=== PATIENT | female | born 1950 | race Caucasian/White ===

== ENCOUNTER 2024-06-28 23:45 | Inpatient (IN) | payer OTHER, SELFPAY ==
[2024-06-28] VITALS (12 sets, daily range): BP systolic 110–166; BP diastolic 81–117; PULSE 115–124; BMI 23.6
--- NOTE | 2024-06-28 14:40 | ED.GENMED ---
History of Present Illness
<NEAL Rios - Last Filed: 06/29/24 07:30>
General
Chief Complaint: Dizziness
Source: patient
Exam Limitations: none
Time Seen by Provider: 06/28/24 14:40
Nursing documentation reviewed up to this point in time: agreed with
History of Present Illness
History of Present Illness:
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 She reports she started 2 weeks ago with room spinning sensation every time she would lay down normal to the right. She did however develop a headache 2 days
ago and this a.m. started with a very severe headache and nausea. She complains of pain to the right side of her head right lateral to mid neck and still feels some vertigo when she looks to the right when she is laying down.
She denies any recent trauma she fell about a month ago. She denies any chiropractic manipulation. She is not on blood thinners. No difficulty with speech or weakness in extremities.
Past History
<NEAL Rios - Last Filed: 06/29/24 07:30>
Past History
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
Social History
Tobacco: Non-smoker
Alcohol: Daily (2 glasses of wine a day)
Drug: None
Personal: Single
Living: alone
Family History
Family History: Other
Phy Exam
<NEAL Rios - Last Filed: 06/29/24 07:30>
General Physical Exam
General Presentation: no apparent distress
General age: appears stated age
General Skin: warm and dry
General Habitus: normal
General Mental: alert
General Hydration: appears well hydrated
ENT Exam
ENT Exam: neck supple
Eye Exam
Eye Exam: PERRL, EOMI and other (no nystagmus b/l )
Eye Exam General: PERRL: bilateral and EOM intact: bilateral
Pupil Exam: Bilateral: round and reactive
Pulmonary Exam
Pulmonary Exam: lungs clear and no respiratory distress
Neurological Exam
Neurological Exam: alert, oriented x3, no motor deficits and no sensory deficits
Musculoskeletal Exam
Musculoskeletal Exam: full ROM
Skin Exam
Skin Exam: normal color and warm/dry
Psychiatric Exam
Psychiatric Exam: normal mood/affect
Course
<NEAL Rios - Last Filed: 06/29/24 07:30>
Orders/Labs/Results
Orders:
Orders
06/28/24 13:10
ECG [Electrocardiogram (*1)] Urgent
Reason for Study: Vertigo / Dizzy
06/28/24 13:11
CT Head W/o Iv Contrast Urgent
Comment:
Reason For Exam: headache
EKG- Treatment ONCE
06/28/24 14:52
IV Insert/Care/Rem.- Treatment PRN
0.9% Sodium Chloride 1000 ml [Nss] 1,000 ml IV BOLUS
Metoclopramide [Reglan] 10 mg IV NOW STA
06/28/24 14:53
CT Head & Neck Angio W/wo IV Urgent
Comment:
Reason For Exam: neck pain/vertigo/headache
Diphenhydramine [Benadryl] 25 mg IV NOW STA
06/28/24 15:20
C-Reactive Protein Urgent
Comment: ADD ON
Complete Blood Count/With Diff Urgent
Comprehensive Metabolic Panel Urgent
Erythrocyte Sed Rate Urgent
06/28/24 16:39
Diphenhydramine [Benadryl] 50 mg .ROUTE .STK-MED ONE
06/28/24 16:50
Diphenhydramine [Benadryl] 25 mg IV NOW STA
06/28/24 18:28
Orthostatic VS- Treatment ONCE
06/28/24 18:29
Baclofen [Lioresal] 10 mg PO ONCE ONE
06/28/24 18:35
Add On- LAB Urgent
Tests Added?: CRP, sed rate
06/28/24 22:20
Meningitis Panel, CSF by PCR Stat
[facility] Source: [facility]
Specimen Description:
06/28/24 22:23
CSF Cell Count Stat
Date Specimen was Collected: 06/28/24
Time Specimen was Collected: 22:16
CSF Tube Number: 4
CSF Cell Count X Stat
Date Specimen was Collected: 06/28/24
Time Specimen was Collected: 22:16
CSF Tube Number: 4
Lyme PCR, DNA [S] Stat
Spinal Fluid Glucose Urgent
Date Specimen was Collected: 06/28/24
Time Specimen was Collected: 22:16
Spinal Fluid Protein Urgent
Date Specimen was Collected: 06/28/24
Time Specimen was Collected: 22:16
06/28/24 22:24
CSF Culture with Gram Stain Stat
[facility] Source: [facility]
Specimen Description:
Date Specimen was Collected: 06/28/24
Time Specimen was Collected: 22:16
06/28/24 23:12
Acetaminophen [Tylenol] 1,000 mg PO NOW STA
06/29/24 06:43
MR Brain Without Contrast Routine
Reason For Exam: occipital headache, vertigo
OK for patient to be off Cardiac Monitoring for MRI: No
Recent pill cam endoscopy?: No
Abnormal Lab Results
06/28/24 06/28/24
15:20 22:23
Hgb 16.6 H g/dL
(12.0-16.0)
Hct 50.5 H %
(37.0-47.0)
MCH 31.3 H pg
(27.0-31.0)
MCHC 32.9 L g/dL
(33.0-37.0)
Absolute Lymphs (auto) 0.7 L 10^3/uL
(1.2-3.4)
Neutrophils % 79.1 H %
(42.2-75.2)
Lymphocytes % 12.5 L %
(20.5-51.1)
Creatinine 0.5 L mg/dL
(0.6-1.0)
CSF Glucose 77 H mg/dl
(40-70)
06/28/24 15:20
06/28/24 15:20
Vital Signs
Initial and Last Documented VS:
Initial Vital Signs
Temp Pulse Resp BP Pulse Ox
98.3 F 93 20 166/107 96
06/28/24 13:08 06/28/24 13:08 06/28/24 13:08 06/28/24 13:08 06/28/24 13:08
Last Documented Vital Signs
Temp Pulse Resp BP Pulse Ox
98.3 F 70 18 148/96 94
06/28/24 13:08 06/29/24 06:30 06/29/24 05:30 06/29/24 04:34 06/29/24 04:45
<Barbara Collier, DO - Last Filed: 06/28/24 22:37>
Orders/Labs/Results
Orders:
Orders
06/28/24 13:10
ECG [Electrocardiogram (*1)] Urgent
Reason for Study: Vertigo / Dizzy
06/28/24 13:11
CT Head W/o Iv Contrast Urgent
Comment:
Reason For Exam: headache
EKG- Treatment ONCE
06/28/24 14:52
IV Insert/Care/Rem.- Treatment PRN
0.9% Sodium Chloride 1000 ml [Nss] 1,000 ml IV BOLUS
Metoclopramide [Reglan] 10 mg IV NOW STA
06/28/24 14:53
CT Head & Neck Angio W/wo IV Urgent
Comment:
Reason For Exam: neck pain/vertigo/headache
Diphenhydramine [Benadryl] 25 mg IV NOW STA
06/28/24 15:20
C-Reactive Protein Urgent
Comment: ADD ON
Complete Blood Count/With Diff Urgent
Comprehensive Metabolic Panel Urgent
Erythrocyte Sed Rate Urgent
06/28/24 16:39
Diphenhydramine [Benadryl] 50 mg .ROUTE .STK-MED ONE
06/28/24 16:50
Diphenhydramine [Benadryl] 25 mg IV NOW STA
06/28/24 18:28
Orthostatic VS- Treatment ONCE
06/28/24 18:29
Baclofen [Lioresal] 10 mg PO ONCE ONE
06/28/24 18:35
Add On- LAB Urgent
Tests Added?: CRP, sed rate
06/28/24 22:20
Meningitis Panel, CSF by PCR Stat
[facility] Source: [facility]
Specimen Description:
06/28/24 22:23
CSF Cell Count Stat
Date Specimen was Collected: 06/28/24
Time Specimen was Collected: 22:16
CSF Tube Number: 4
CSF Cell Count X Stat
Date Specimen was Collected: 06/28/24
Time Specimen was Collected: 22:16
CSF Tube Number: 4
Lyme PCR, DNA [S] Stat
Spinal Fluid Glucose Urgent
Date Specimen was Collected: 06/28/24
Time Specimen was Collected: 22:16
Spinal Fluid Protein Urgent
Date Specimen was Collected: 06/28/24
Time Specimen was Collected: 22:16
06/28/24 22:24
CSF Culture with Gram Stain Stat
[facility] Source: [facility]
Specimen Description:
Date Specimen was Collected: 06/28/24
Time Specimen was Collected: 22:16
06/28/24 23:12
Acetaminophen [Tylenol] 1,000 mg PO NOW STA
06/29/24 06:43
MR Brain Without Contrast Routine
Reason For Exam: occipital headache, vertigo
OK for patient to be off Cardiac Monitoring for MRI: No
Recent pill cam endoscopy?: No
Abnormal Lab Results
06/28/24 06/28/24
15:20 22:23
Hgb 16.6 H g/dL
(12.0-16.0)
Hct 50.5 H %
(37.0-47.0)
MCH 31.3 H pg
(27.0-31.0)
MCHC 32.9 L g/dL
(33.0-37.0)
Absolute Lymphs (auto) 0.7 L 10^3/uL
(1.2-3.4)
Neutrophils % 79.1 H %
(42.2-75.2)
Lymphocytes % 12.5 L %
(20.5-51.1)
Creatinine 0.5 L mg/dL
(0.6-1.0)
CSF Glucose 77 H mg/dl
(40-70)
06/28/24 15:20
06/28/24 15:20
Vital Signs
Initial and Last Documented VS:
Initial Vital Signs
Temp Pulse Resp BP Pulse Ox
98.3 F 93 20 166/107 96
06/28/24 13:08 06/28/24 13:08 06/28/24 13:08 06/28/24 13:08 06/28/24 13:08
Last Documented Vital Signs
Temp Pulse Resp BP Pulse Ox
98.3 F 70 18 148/96 94
06/28/24 13:08 06/29/24 06:30 06/29/24 05:30 06/29/24 04:34 06/29/24 04:45
Procedures
<Barbara Collier DO - Last Filed: 06/28/24 22:37>
Lumbar Puncture
Indication for procedure:: headache
Procedure completed by: Barbara Collier DO
Consent form signed: Yes
If no, reason: Emergency procedure
Anesthesia/sedation: 1% Lidocaine
Preparation: cleaned with Betadine
Position: sitting
Needle Size: 22 gauge
Needle Type: Lumbar Needle
Number of attempts: 1
Dressing applied to puncture site: bandaid
Complications: none
<NEAL Rios - Last Filed: 06/29/24 07:30>
MDM/Problems Addressed
MDM/Problems Addressed:
As documented patient is a 74-year-old with ALS who presents for evaluation. Patient started with vertigo 2 weeks ago but then today developed a headache still has some vertigo when she looks to the right when laying down and has had pain in neck
and head. No recent trauma or chiropractic manipulation. Initial CAT scan negative however will do CT head neck angio to rule out dissection. Patient is nauseous here and does complain primarily of headache. She is not on blood thinners. She
was recommended fluids Reglan and Benadryl however declined fluids because she does not want to urinate a lot because her balance is off because of ALS. She was given Reglan and Benadryl to treat headache.
CT head neck angio is pending. Patient feeling very restless and feels like her jaw spasming despite getting Benadryl with Reglan will give another dose of Benadryl. She does report however that the headache is improving. Care of pt at this time
transferred to DR Collier
<NEAL Rios - Last Filed: 06/29/24 07:30>
*Radiology
Radiology exam reviewed: radiology read reviewed
*Pulse Oximetry
Patient hypoxic: no
*Critical Care Note
Total Time (30-74mins, 75-104mins- exclusive of procedures): Not Applicable
ED Attending Note
<NEAL Rios - Last Filed: 06/29/24 07:30>
-
Portions of this chart may have been created with voice recognition software.� Occasional wrong word or��sound alike� substitutions may have occurred due to the inherent limitations of voice recognition software.
<Barbara Collier DO - Last Filed: 06/28/24 22:37>
ED Attending Note
Patient seen and examined by attending physician: Yes
I performed the substantive portion of visit, reviewed & personally made and approve the management plan that is documented in note by myself or CHEMA.: Yes
I performed a history and physical exam of patient and discussed management with resident, I reviewed resident's note and agree with documented findings and plan of care.: Yes
ED Attending Note:
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 Patient reports that 2 weeks ago she was having vertiginous symptoms. About 2 days ago, started to have headache, and felt that the headache
worsened today with nausea. Denies weakness or numbness to extremities. Denies visual changes. Does note the dizziness is positional, room spinning. Denies recent fall or trauma. Denies fever. Vital signs on arrival are significant for high
blood pressure, however normalized without intervention.
On exam, patient is resting comfortably, no acute distress. Patient initially seen by nurse practitioner, no focal neurologic deficits on examination. Patient had CT brain imaging without acute intracranial abnormality. Given persistence of
symptoms, plan for CT head and neck angio. On my assessment, again no focal neurologic deficits. Patient had been given Reglan for her headache, became increasingly restless, given Benadryl for likely dystonic reaction. Regarding her headache,
afebrile without meningismus or concern for acute meningitis. Blood pressure within normal limits without concern for pseudotumor cerebri. Headache reportedly improving, lower suspicion for serious intracranial abnormality such as subarachnoid.
Will continue to reassess, pending CT imaging
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 In discussion with neurology, recommending neurosurgery consultation.
18:45 - Discussed with neurosurgery, Dr. Cline, reports if not ruptured, nothing acutely to be done.
19:00 -again in discussion with neurology, recommending admission, MRI imaging for CVA rule out and continued monitoring.
20:50-in discussion with hospitalist, decision made to proceed with lumbar puncture due to headache and known aneurysm. Will perform
22:15 - Lumbar puncture performed, no complications. Fluid clear in color without significant concern for subarachnoid. Testing sent
Discharge Plan
Departure
Patient Disposition: Admit
Date of Disposition: 06/28/24
Time of Disposition: 19:17
Presentation/result/management discussed w/ accepting MD/DO: Hospitalist
Patient with high blood pressure during this ER visit?: No
Condition: Fair
Discharge Problem:
Dizziness, Headache, Aneurysm of internal carotid artery
Interventions
Interventions:
*Risk Screen - Suicide Last Done: 06/28/24 14:10
*General Assessment Last Done: 06/28/24 13:08
*Neglect/Abuse Screening Last Done: 06/28/24 14:10
ED- Fall Risk Assessment Last Done: 06/28/24 14:08
*ED COVID-19 Vaccine History Last Done: 06/28/24 14:10
ED- Neurological Assessment Last Done: 06/28/24 14:09
ED- Cardiac Assessment Last Done: 06/28/24 14:08
ED Swallowing Screen Last Done: 06/28/24 17:59
[2024-06-28] MEDS: BENADRYL 25 MG IV ×2 (15:05→16:56)
[2024-06-28] MEDS: REGLAN 10 MG IV (15:06)
[2024-06-28] MEDS: NSS 1000 IV (15:09)
[2024-06-28 15:40] LABS: % Basophils 0.7 % (0-2); % Eosinophils 0.9 % (0-6); % Immature Granulocytes 0.5 % (0-0.5); % Lymphocytes 12.5 % (20.5-51.1); % Monocytes 6.3 % (1.7-9.3); % Neutrophils 79.1 % (42.2-75.2); Absolute Eosinophils 0.1 10^3/uL (0-0.7); Absolute Lymphocytes 0.7 10^3/uL (1.2-3.4); Absolute Monocytes 0.4 10^3/uL (0.1-0.6); Absolute Neutrophils 4.6 10^3/uL (1.4-6.5); Hematocrit 50.5 % (37.0-47.0); Hemoglobin 16.6 g/dL (12.0-16.0); Mean Corp Hgb Conc. 32.9 g/dL (33.0-37.0); Mean Corpuscular Hgb 31.3 pg (27.0-31.0); Mean Corpuscular Volume 95.3 fL (81.0-99.0); Nucleated Red Blood Cells % 0 %; Platelet Count 180 10^3/uL (130-400); Red Cell Dist. Width 13.6 % (11.5-14.5); White Blood Cell Count 5.9 10^3/uL (4.8-10.8)
[2024-06-28 15:52] LABS: ALT (SGPT) 22 U/L (0-35); AST (SGOT) 29 U/L (14-36); Albumin 4.8 g/dl (3.5-5.0); Alkaline Phosphatase 92 U/L (38-126); Blood Urea Nitrogen 16 mg/dl (7-17); Calcium 9.4 mg/dl (8.4-10.2); Carbon Dioxide 29 mmol/L (22-30); Chloride 104 mmol/L (98-107); Estimated Creatinine Clearance 66 ml/min; Glucose 98 mg/dl (70-99); Potassium 4.1 mmol/L (3.5-5.1); Sodium 142 mmol/L (135-145); Total Bilirubin 0.9 mg/dl (0.2-1.3); Total Protein 7.6 g/dl (6.3-8.2); eGFR > 60.00
[2024-06-28] MEDS: LIORESAL 10 MG PO (18:35)
[2024-06-28 18:46] LABS: Erythrocyte Sed Rate 2 mm/hour (0-20)
[2024-06-28 19:16] LABS: C-Reactive Protein < 5.00 mg/L (0.0-10.00)
--- NOTE | 2024-06-28 22:06 | HPS.HSE ---
Family Physician
-
Family Physician: Shane Cho
Chief Complaint
-
Posterior Headache, Nausea, Dizziness
History of Present Illness
Patient is a 74y F with PMH significant for primary lateral sclerosis and hypertension who presents to ED complaining of headache, nausea and dizziness. Patient states that she has been dizzy for the past 2 weeks or so. Dizziness occurs
exclusively when lying on the R side. No dizziness when sitting upright - regardless of turning head. Patient noted development of posterior headache about 2 days ago. It was bothersome, but not severe and she did not seek medical attention for
either complaint at that time.
Today upon waking, patient noted severe headache in the occipital region / posterior cervical region accompanied by nausea. She denies any emesis. She denies any visual changes.
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
With severe headache patient presented to the ED for further evaluation and treatment.
At the time of my examination, patient states that her headache has not improved despite medications given here in the ED.
She denies any new complaints. She has no history of chronic headaches, migraines, etc.
She is followed by Neurology at [facility] for her PLS.
Patient states that her last [facility] imaging was probably 12-14 years ago.
Medical History
Past Medical History
Past Medical History: Reports Other
Additional Past Medical History:
Primary Lateral Sclerosis
Hypertension
LBBB
Past Surgical History: Reports None
Social History
Tobacco: Former Smoker (Quit smoking 20 years ago. Approx 20 pack years total use.)
Alcohol: Daily (1 1/2 glasses of wine daily.)
Drug: None
Family History
Family History: Other (Mother / Father / Brother: CVA No known family h/o aneurysm.)
Allergies / Home Medications
Allergies reflects when Allergies were last updated in [employer].
Home Medications with original date entered in [employer]
Allergy/Medication List:
Allergies
Allergy/AdvReac Type Severity Reaction Status Date / Time
minocycline Allergy Hives Verified 06/28/24 13:08
Home Medications
amlodipine 2.5 mg tablet 2.5 mg PO DAILY Blood Pressure 06/28/24
baclofen 10 mg tablet 5 mg PO HS spasm/pain 06/28/24
baclofen 10 mg tablet 10 mg PO DAILY spasm/pain 06/28/24
omega 2-rfj-dyr-fish oil 100 mg-160 mg-1,000 mg capsule (Fish Oil) 4 cap PO .4 TIMES WEEKLY Supplement 06/28/24
Review of Systems
-
History Source: Patient
A 12 point ROS was completed and negative except as noted: Yes
Constitutional: Reports Fatigue; Denies Fever or Chills
EENT: Denies Sore Throat
Respiratory: Denies Cough or Trouble Breathing
Cardiac: Denies Chest Pain, Palpitations or Syncope
Abdomen/GI: Reports Nausea; Denies Abdominal Pain, Vomiting, Diarrhea, Constipated, Bloody Stools or Black Stools
: Denies Dysuria, Frequency or Flank Pain
Musculoskeletal: Reports Muscle Stiffness; Denies Joint Pain or Edema
Neurological: Reports Dizzy, Headache and Weakness; Denies Numbness
Psych: Denies Depression or Anxiety
Physical Exam
Vital Signs
Vital Signs
Temp Pulse Resp BP Pulse Ox
98.3 F 104 15 137/86 96
06/28/24 13:08 06/28/24 17:55 06/28/24 17:55 06/28/24 17:54 06/28/24 13:08
Physical Exam
General: Other (Frail 74y F in mild distress due to persistent headache.)
HEENT: Other (Dry MM. Neck supple.)
Respiratory: Clear; No Wheezes, Rales or Rhonchi
Cardiac: S1/S2 and Regular Rhythm; No Murmur
GI: Soft, Non Tender, Non Distended and Normal Bowel Sounds
Musculoskeletal: No Clubbing, No Cyanosis and No Edema
Neuro: Other (Halting / 'spastic' speech. Rigidity in LE < UE with muscle stiffness / no weakness. No noted sensory impairment.)
Laboratory Results
-
06/28/24 15:20
06/28/24 15:20
Laboratory Results
Total Bilirubin 0.9 mg/dl (0.2-1.3) 06/28/24 15:20
AST 29 U/L (14-36) 06/28/24 15:20
ALT 22 U/L (0-35) 06/28/24 15:20
Alkaline Phosphatase 92 U/L (38-126) 06/28/24 15:20
Impression/Plan
-
A/P: Patient is a 74y F with PMH significant for primary lateral sclerosis and [facility] of [facility] headache and nausea since this AM. Dizziness x 2 weeks.
Headache / Nausea
Dizziness
- Admit for further evaluation and treatment.
- CT done in the ED shows microvascular ischemic changes - expected for age. No acute abnormality.
- CTA done in the ED shows 13 x 8 x 9mm L ICA aneurysm. No imaging evidence for bleeding, significant stenosis, etc.
- Given severe / acute headache ('worst headache of my life') and moderate-sized aneurysm would check LP to definitively exclude SAH.
- LP done in the ED - clear appearance - cell counts not consistent with SAH / active bleeding (minimal RBCs [<100] on initial tube - cleared significantly by tube 4).
- Neurology evaluation for additional recommendations.
- MRI in AM to rule out CVA.
- PT / OT / Vestibular therapy evaluations.
- Supportive care / pain control for headache.
- Monitor for any new / worsening symptoms.
L ICA Aneurysm
- Moderate sized aneurysm without obvious symptoms (besides headache, see above).
- Follow-up with Neurology at [facility] for ongoing surveillance / possible intervention / etc.
- BP control.
Primary Lateral Sclerosis
- Chronic muscle spasticity / speech impairment / etc. Continue baclofen.
- PT / OT as noted above.
- Follow-up with outpatient Neurology as noted above.
Benign Hypertension
- Stable. Continue amlodipine and titrate meds as needed for normotension.
DVT Prophylaxis: SCDs
Code Status: Full
[2024-06-28 23:12] LABS: CSF Clarity Clear; CSF Color Colorless; CSF Tube # 1; CSF Tube # 4; CSF Tube # Clarity Clear; Red Cell Count/CSF 1 mm^3; Red Cell Count/CSF 54 mm^3; White Blood Cell Count/CSF 0 mm^3 (0-5); White Cell Count/CSF 0 mm^3 (0-5)
[2024-06-28] MEDS: TYLENOL 1000 MG PO (23:32)
[2024-06-29] VITALS (13 sets, daily range): BP systolic 122–192; BP diastolic 71–111; PULSE 85–101
[2024-06-29 00:21] LABS: Spinal Fluid Glucose 77 mg/dl (40-70); Spinal Fluid Protein 47 mg/dl (12-60)
[2024-06-29] MEDS: VALIUM 2 MG PO (05:44)
[2024-06-29 06:19] LABS: Hematocrit 46.4 % (37.0-47.0); Hemoglobin 15.5 g/dL (12.0-16.0); Mean Corp Hgb Conc. 33.4 g/dL (33.0-37.0); Mean Corpuscular Hgb 31.7 pg (27.0-31.0); Mean Corpuscular Volume 94.9 fL (81.0-99.0); Mean Platelet Volume 9.9 fL (7.4-10.4); Platelet Count 177 10^3/uL (130-400); Red Blood Cell Count 4.89 10^6/uL (4.20-5.40); Red Cell Dist. Width 13.5 % (11.5-14.5)
[2024-06-29 06:46] LABS: Blood Urea Nitrogen 15 mg/dl (7-17); Calcium 9.3 mg/dl (8.4-10.2); Carbon Dioxide 29 mmol/L (22-30); Chloride 103 mmol/L (98-107); Estimated Creatinine Clearance 66 ml/min; Glucose 98 mg/dl (70-99); HDL Cholesterol 106 mg/dl; LDL Cholesterol, Calculated 125 mg/dl; Potassium 4.1 mmol/L (3.5-5.1); Sodium 139 mmol/L (135-145); Total Cholesterol 240 mg/dl (50-199); Triglyceride 49 mg/dl (10-149); Very Low Density Lipoprotein 9 mg/dl (0-30); eGFR > 60.00
[2024-06-29 07:14] LABS: TSH Reflex To Free T4 4.57 uIU/ml (0.47-4.68)
[2024-06-29] MEDS: LIORESAL 10 MG PO (07:55)
[2024-06-29] MEDS: NORVASC 2.5 MG PO (07:56)
--- NOTE | 2024-06-29 08:09 | CON.NEURO ---
Consultation
Order
Date of Consultation: 06/29/24
Requesting Provider:
Reason for Consult: Neurology Consultation Note.
HPI: This is a 74-year-old woman who presented to [facility] on 06/28/2024 with headache and dizziness. According to the patient she developed she developed intermittent dizziness ('is not going to pass out '), worse with turning her
head to the right side with associated blurred vision that she developed around 2 weeks ago. The patient admits to have intermittent bilateral tinnitus which coincided with her lightheadedness onset.no reports of head trauma, fever, newly started
to discontinued medications, recent sinus or viral infections, changes in swallowing. Ms. Parish developed gradual in onset neck pain/stiffness as well as bioccipital nonpositional moderate to severe headache with associated photo and photophobia
and nausea on 06/28/2024 prompting her to seek medical attention.
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 She is currently on baclofen for stiffness but has not had headaches or neck pain before. She has not received physical therapy for a long time, opting to
stretch at home instead. No reports of sensory symptoms in the hands or feet.
ER VS: 166/107-192/107, 93, afebrile.
EKG: LBBB, QTc Int : 459 ms.
PDMP:none
Labs: Hematocrit�50.5, normal glucose, creatinine, sodium, WBCs, CRP, LDL�125,
CSF(06/28/2024) no OP/CP, WBCs�0, RBC�1, glucose�77, protein�47.
CT head wo contrast-diffuse cortical atrophy.
CTA head/neck- mm cavernous L ICA aneurysm, no dissection or thrombosis.
Brain MRI wo gag(2012)-multiple tiny foci of increased signal abnormality.
PMH: PLS, cervical DJD
PSH: hysterectomy
SH: single, lives alone, uses a walker, daily ETOH use; retired from marketing
FH: Diabetes
All:minocycline
ROS:Constitutional: Negative. Negative for chills, fever and unexpected weight change.
HENT: Positive for tinnitus, chronic dysphonia
Eyes: Negative. Negative for photophobia, pain and visual disturbance.
Respiratory: Negative for cough, choking and shortness of breath.
Cardiovascular: Negative for chest pain, palpitations and leg swelling.
Gastrointestinal: Positive for intermittent sialorrhea
Endocrine: Negative. Negative for cold intolerance.
Genitourinary: Negative for dysuria, flank pain and urgency.
Musculoskeletal: Positive for neck pain and stiffness.
Skin: Negative for rash.
Allergic/Immunologic: Negative. Negative for immunocompromised state.
Neurological: Positive for headache, left greater than right spasticity, muscle spasms in the legs
Psychiatric/Behavioral: Negative for behavioral problems, confusion and hallucinations.
General: Well developed. In no acute distress.
Cardio: Regular rate and rhythm without murmur. Extremities are without cyanosis or edema.
Neuro:
Mental Status: Alert, oriented to person, place, and date. Normal attention and recall. Good fund of knowledge. Follows complex requests across the midline. Comprehension, naming, and repetition intact. Immediate and delayed recall 3/3.
Cranial Nerves: . Pupils are equally round and reactive to light. EOMs full. Visual luevano full to confrontation. No ptosis. No nystagmus. V1-V3 intact to light touch and pinprick bilaterally, symmetric. Face symmetric. Normal hearing AU.
The palate elevated well. SCMs and traps 5/5. Tongue midline. Moderate spasmodic dysphonia
Motor: Increased motor tone no pronator or arm drift. Strength 5/5 throughout. No clonus.
Reflexes: 3+ throughout the upper extremities and knees. 3/2 in AJs. Plantar responses flexor bilaterally.
Sensory: normal vibration at the toes
Coordination: Reduced fine finger movements left greater than right, no dysmetria or tremor.
Gait: deferred
Assessment and Plan:
I. New headache.
II. PLS, spasmodic dysphonia
III. Cervical DJD
IV. 13/8/9 mm Left cavernous aneurysm.
-Please obtain orthostatic vital signs
-Aspiration precautions
-Brain MRI without alisia to rule out RCVS
-C spine MRI wo alisia
-Follow-up magnesium.
-Diazepam 1-2 mg every 8 hours as needed
-Neurosurgery consult
-Cardiology consult
-Dysphagia evaluation
I personally reviewed all radiology and labs along with past medical records pertinent to current medical problems. Total time spent in patient care is 60 minutes.
Thank you for allowing us to participate in the care of this patient. We will continue to follow. Please do not hesitate to contact us with any questions or concerns.
=
Subjective/Objective
Subjective Data
Date of Service: June 29, 2024
Objective Data
Vital Signs
Temp Pulse Resp BP Pulse Ox
36.8 C 77 17 144/89 95
06/28/24 13:08 06/29/24 07:56 06/29/24 07:55 06/29/24 07:56 06/29/24 08:00
Lab Results
06/29/24 06:03
06/29/24 06:03
Sodium 139 mmol/L (135-145) 06/29/24 06:03
Potassium 4.1 mmol/L (3.5-5.1) 06/29/24 06:03
BUN 15 mg/dl (7-17) 06/29/24 06:03
Glucose 98 mg/dl (70-99) 06/29/24 06:03
Calcium 9.3 mg/dl (8.4-10.2) 06/29/24 06:03
LDL Cholesterol, Calc 125 mg/dl 06/29/24 06:03
Patient Allergies
minocycline Allergy (Verified 06/28/24 13:08)
Hives
Medications
-
Active Medications
Generic Name Dose Route Start Last Admin
Trade Name Freq PRN Reason Stop Dose Admin
Acetaminophen 650 mg 06/29/24 01:36
Acetaminophen 325 Mg Tablet PO 07/27/24 01:35
Q4HPRN PRN
Mild Pain / Temp > 101
Amlodipine Besylate 2.5 mg 06/29/24 08:00 06/29/24 07:56
Amlodipine 2.5 Mg Tablet PO 07/27/24 07:59 2.5 mg
DAILY OSKAR Administration
Baclofen 10 mg 06/29/24 08:00 06/29/24 07:55
Baclofen 10 Mg Tablet PO 07/27/24 07:59 10 mg
DAILY OSKAR Administration
Baclofen 5 mg 06/29/24 22:00
Baclofen 10 Mg Tablet PO 07/27/24 21:59
HS OSKAR
Diazepam 2 mg 06/29/24 01:36 06/29/24 05:44
Diazepam 2 Mg Tablet PO 07/27/24 01:35 2 mg
TIDPRN PRN Administration
SHELDON / Neck Pain
Morphine Sulfate 2 mg 06/29/24 01:36
Morphine 2 Mg/Ml Syringe IV 07/13/24 01:35
Q4HPRN PRN
Severe Pain
Sodium Chloride 0 flush 06/29/24 03:00
Sodium Chloride 0.9% (Flush) Syringe IV 07/27/24 02:59
PER PROTOCOL OSKAR
Home Medications
�Medication �Instructions �Recorded
amlodipine 2.5 mg tablet 2.5 mg PO DAILY Blood Pressure 06/28/24
baclofen 10 mg tablet 5 mg PO HS spasm/pain 06/28/24
baclofen 10 mg tablet 10 mg PO DAILY spasm/pain 06/28/24
omega 8-sgh-dgm-fish oil 100 4 cap PO .4 TIMES WEEKLY Supplement 06/28/24
mg-160 mg-1,000 mg capsule (Fish
Oil)
Vital Signs and Labs
-
Vital Signs and Labs:
Vital Signs
Temp Pulse Resp BP Pulse Ox
36.8 C 77 17 144/89 95
06/28/24 13:08 06/29/24 07:56 06/29/24 07:55 06/29/24 07:56 06/29/24 08:00
Lab Results
06/29/24 06:03
06/29/24 06:03
Sodium 139 mmol/L (135-145) 06/29/24 06:03
Potassium 4.1 mmol/L (3.5-5.1) 06/29/24 06:03
BUN 15 mg/dl (7-17) 06/29/24 06:03
Glucose 98 mg/dl (70-99) 06/29/24 06:03
Calcium 9.3 mg/dl (8.4-10.2) 06/29/24 06:03
LDL Cholesterol, Calc 125 mg/dl 06/29/24 06:03
Medications
-
Medications:
Generic Name Dose Route Start Last Admin
Trade Name Freq PRN Reason Stop Dose Admin
Acetaminophen 650 mg 06/29/24 01:36
Acetaminophen 325 Mg Tablet PO 07/27/24 01:35
Q4HPRN PRN
Mild Pain / Temp > 101
Amlodipine Besylate 2.5 mg 06/29/24 08:00 06/29/24 07:56
Amlodipine 2.5 Mg Tablet PO 07/27/24 07:59 2.5 mg
DAILY OSKAR Administration
Baclofen 10 mg 06/29/24 08:00 06/29/24 07:55
Baclofen 10 Mg Tablet PO 07/27/24 07:59 10 mg
DAILY OSKAR Administration
Baclofen 5 mg 06/29/24 22:00
Baclofen 10 Mg Tablet PO 07/27/24 21:59
HS OSKAR
Diazepam 2 mg 06/29/24 01:36 06/29/24 05:44
Diazepam 2 Mg Tablet PO 07/27/24 01:35 2 mg
TIDPRN PRN Administration
SHELDON / Neck Pain
Morphine Sulfate 2 mg 06/29/24 01:36
Morphine 2 Mg/Ml Syringe IV 07/13/24 01:35
Q4HPRN PRN
Severe Pain
Sodium Chloride 0 flush 06/29/24 03:00
Sodium Chloride 0.9% (Flush) Syringe IV 07/27/24 02:59
PER PROTOCOL OSKAR
Home Medications
-
Home Medications
amlodipine 2.5 mg tablet 2.5 mg PO DAILY Blood Pressure 06/28/24
baclofen 10 mg tablet 5 mg PO HS spasm/pain 06/28/24
baclofen 10 mg tablet 10 mg PO DAILY spasm/pain 06/28/24
omega 1-mzq-rgb-fish oil 100 mg-160 mg-1,000 mg capsule (Fish Oil) 4 cap PO .4 TIMES WEEKLY Supplement 06/28/24
[2024-06-29 08:47] LABS: Glycohemoglobin (HgbA1c) 5.7 % (4.0-5.6)
[2024-06-29 09:17] LABS: COVID-19 Antigen Negative (Negative)
[2024-06-29 09:28] LABS: D-Dimer 0.82 ug/mlFEU (0.00-0.50)
[2024-06-29 09:52] LABS: Magnesium 2.1 mg/dl (1.6-2.3)
[2024-06-29] MEDS: TYLENOL 650 MG PO ×2 (12:44→23:21)
--- NOTE | 2024-06-29 14:07 | W.PN.HOSP.TC ---
Today's Communication/Plan
-
Follow-up MRI brain and C-spine
Increase amlodipine to 5 mg
Orthostatic vital signs
Consider neurosurgery and cardiology
Assessment / Plan
Assessment / Plan
#Headache and dizziness
#CVA rule out
-CT brain without contrast unremarkable; CTA with 13 x 8 x 9 mm left ICA aneurysm
-Underwent LP in the ED, no signs of xanthochromia or significant RBC, low suspicion for SAH
-Neurology evaluated, recommended MRI brain as well as C-spine, results pending
-Started on supportive therapy for headache, seems to have resolved, remains dizzy
-Very low NIHSS as of this morning
Plan
-Follow-up MRI brain and C-spine without contrast
-Consider neurosurgical and cardiology evaluation
-PT/OT/vestibular therapy
-Check orthostatic vitals
-Speech and swallow eval
-Continue with neurochecks/NIHSS
-Continue symptomatic care for dizziness and headache
#Left ICA aneurysm
-Moderate-sized, may be associated with headache though no other obvious symptoms
-Follows at [facility] neurology for surveillance; does not seem significantly increased in size
-Currently hypertensive, will increase amlodipine for now
-Consider neurosurgical consult as above
#Primary lateral sclerosis
-Complicated by chronic muscle spasticity and speech impairment
-Resumed on home baclofen regimen
-Will need to follow-up with neurologist after discharge
#Hypertension
-Home medications include amlodipine 2.5 mg daily
-Has known left ICA aneurysm
-Increase amlodipine to 5 mg starting tomorrow
DVT prophylaxis: SCDs
Diet: Regular
CODE STATUS: Full code
Anticipated Discharge: > 48 hours
Subjective/Interval History
-
Date of Service: June 29, 2024
Seen and examined at the bedside. No acute events reported overnight. AFVSS as of this morning
Her power of animal care supervisor was in the room and provided with updates. Still has dizziness though headache is improved
Denies any acute complaint
Objective Data
-
Labs:
Laboratory Results
06/29/24
06:03
WBC 6.0
Hgb 15.5
Hct 46.4
Plt Count 177
Sodium 139
Potassium 4.1
Chloride 103
Carbon Dioxide 29
BUN 15
Creatinine 0.5 L
Glucose 98
Calcium 9.3
Vital Signs:
Vital Signs
Temp Pulse Resp BP Pulse Ox
98.3 F 81 12 177/103 91
06/28/24 13:08 06/29/24 12:00 06/29/24 12:00 06/29/24 10:00 06/29/24 10:00
Review of Systems
-
History Source: Patient
All other systems: Reviewed and negative
Physical Exam
-
General: Well Developed, No Apparent Distress, Comfortable and Other (Thin and frail appearing)
HEENT: Normocephalic, Atraumatic, Moist Mucous Membranes and Anicteric
Respiratory: Clear to Auscultation and Non Labored Respirations
Cardiac: Regular Rhythm and S1/S2; Negative Murmur, Rub or Gallop
GI: Soft, Nontender, Nondistended and Normal Bowel Sounds
Musculoskeletal: No Clubbing, No Cyanosis and No Edema
Skin: Warm and Dry; Negative Rash
Neuro: AO x 3 and Other (5/5 MMS, no gross sensory deficit, no nystagmus, PERRL, tongue protrusion midline, no facial asymmetry)
Psych: Calm
Data Reviewed
-
CT Scan: Report Reviewed by me, Discussed with Patient and Discussed with Family
MRI: Discussed with Patient and Discussed with Family
Labs: Labs Reviewed by me, Discussed with Patient and Discussed with Family
--- NOTE | 2024-06-29 16:19 | PTOTSP ---
SPEECH THERAPY SWALLOW EVALUATION:
Patient exhibits clinical signs of mild oropharyngeal dysphagia, likely chronic related to Primary lateral sclerosis. Patient denies changes from baseline at this time. Patient with report of occasional coughing with solids at baseline. WBC
currently WNL; Respiratory status stable at this time. No CXR available. speech/language/cognitive communication skills were not formally assessed, but informal assessment demonstrated grossly functional skills. Pt denied any speech/cognitive
changes at this time. Spastic dysarthria at baseline. Given largely intact cognitive status and ability for patient to implement safe swallow strategies and aspiration precautions, recommend pt to continue baseline diet of Regular texture solids,
thin liquids. Medications whole with liquid as best tolerated. Aspiration precautions: Upright positioning; Small single sips/bites; Slow rate of intake; Overchew solids; Monitor for signs of aspiration. ST to follow, assess diet tolerance and
modify as appropriate, determine indication for instrumental assessment of swallowing if appropriate, provide continued education regarding aspiration risks/precautions, and determine indication for formal assessment of speech/language/cognitive
communication skills pending MRI results.
RECOMMEND:
1) Regular texture solids, thin liquids
2) Medications whole with liquid as best tolerated
3) Aspiration precautions: Upright positioning; Small single sips/bites; Slow rate of intake; Overchew solids; Monitor for signs of aspiration
4) ST to follow, determine indication for instrumental assessment of swallowing if appropriate, and determine indication for formal assessment of speech/language/cognitive communication skills pending MRI results
--- NOTE | 2024-06-29 16:33 | PTCARENOTE ---
Received patient from ED via stretcher. Pt AAOX3. NSR on patient monitor. Pox: 92-93% RA. Friends at bedside. Call mendez within reach. Plan of care ongoing
[2024-06-29] MEDS: ZOFRAN 4 MG IV (18:25)
[2024-06-29] MEDS: LIORESAL 5 MG PO (21:51)
[2024-06-30 03:30] VITALS: BP 128/76
[2024-06-30 07:01] LABS: % Basophils 0.9 % (0-2); % Eosinophils 1.7 % (0-6); % Immature Granulocytes 0.2 % (0-0.5); % Monocytes 8.9 % (1.7-9.3); % Neutrophils 67.3 % (42.2-75.2); Absolute Basophils 0.1 10^3/uL (0-0.2); Absolute Eosinophils 0.1 10^3/uL (0-0.7); Absolute Lymphocytes 1.1 10^3/uL (1.2-3.4); Absolute Monocytes 0.5 10^3/uL (0.1-0.6); Absolute Neutrophils 3.6 10^3/uL (1.4-6.5); Hematocrit 47.4 % (37.0-47.0); Hemoglobin 15.4 g/dL (12.0-16.0); Mean Corp Hgb Conc. 32.5 g/dL (33.0-37.0); Mean Corpuscular Hgb 31.3 pg (27.0-31.0); Mean Corpuscular Volume 96.3 fL (81.0-99.0); Mean Platelet Volume 9.7 fL (7.4-10.4); Nucleated Red Blood Cells % 0 %; Platelet Count 162 10^3/uL (130-400); Red Blood Cell Count 4.92 10^6/uL (4.20-5.40); Red Cell Dist. Width 13.5 % (11.5-14.5); White Blood Cell Count 5.4 10^3/uL (4.8-10.8)
[2024-06-30 07:24] LABS: Blood Urea Nitrogen 18 mg/dl (7-17); Calcium 9.4 mg/dl (8.4-10.2); Carbon Dioxide 30 mmol/L (22-30); Chloride 102 mmol/L (98-107); Estimated Creatinine Clearance 66 ml/min; Glucose 90 mg/dl (70-99); Magnesium 2.1 mg/dl (1.6-2.3); Potassium 3.7 mmol/L (3.5-5.1); Sodium 139 mmol/L (135-145); eGFR > 60.00
[2024-06-30 07:55] VITALS: BP 137/78; BP 140/76; PULSE 90; PULSE 93
[2024-06-30] MEDS: NORVASC 5 MG PO (08:07)
[2024-06-30] MEDS: LIORESAL 10 MG PO (08:08)
[2024-06-30] MEDS: TYLENOL 650 MG PO ×2 (10:17→21:46)
[2024-06-30 11:06] VITALS: BP 138/92
--- NOTE | 2024-06-30 11:30 | W.PN.HOSP.TC ---
Today's Communication/Plan
-
IR consult for epidural blood patch
Continue benzodiazepines and meclizine for dizziness
Continue supportive care for headaches
Assessment / Plan
Assessment / Plan
#Headache and dizziness
#Vertigo
#CVA rule out
-CT brain without contrast unremarkable; CTA with 13 x 8 x 9 mm left ICA aneurysm
-Underwent LP in the ED, no signs of xanthochromia or significant RBC, low suspicion for SAH
-Neurology evaluated, recommended MRI brain as well as C-spine, results pending
-Started on supportive therapy for headache, seems to have resolved, remains dizzy
-MRI brain/C-spine without contrast without any acute findings, no signs of CVA
-Currently on benzodiazepines every 2 hours as needed and meclizine for symptomatic care
Plan
-IR consult for epidural blood patch
-PT/OT/vestibular therapy
-Continue symptomatic care for dizziness and headache
#Left ICA aneurysm
-Moderate-sized, may be associated with headache though no other obvious symptoms
-Follows at [facility] neurology for surveillance; does not seem significantly increased in size
-Currently hypertensive, will increase amlodipine for now
-Spoke with neurosurgery, no intervention at this time
-Will need to follow-up at [facility]
#Primary lateral sclerosis
-Complicated by chronic muscle spasticity and speech impairment
-Resumed on home baclofen regimen
-Will need to follow-up with neurologist after discharge
#Hypertension
-Home medications include amlodipine 2.5 mg daily
-Has known left ICA aneurysm
-Amlodipine increased to 5 mg yesterday
-Continue to uptitrate amlodipine for blood pressure goal <130/80
DVT prophylaxis: SCDs
Diet: Regular
CODE STATUS: Full code
Anticipated Discharge: 24 - 48 hours
Subjective/Interval History
-
Date of Service: June 30, 2024
Seen and examined at the bedside. No acute events reported overnight. AFVSS this morning
Her symptoms are slightly improved though she still does have significant dizziness and headache. MRI brain and C-spine yesterday negative
Denies any acute complaints
Objective Data
-
Labs:
Laboratory Results
06/30/24
06:36
WBC 5.4
Hgb 15.4
Hct 47.4 H
Plt Count 162
Sodium 139
Potassium 3.7
Chloride 102
Carbon Dioxide 30
BUN 18 H
Creatinine 0.6
Glucose 90
Calcium 9.4
Vital Signs:
Vital Signs
Temp Pulse Resp BP Pulse Ox
98.5 F 84 18 138/92 94
06/30/24 11:06 06/30/24 11:06 06/30/24 11:06 06/30/24 11:06 06/30/24 11:06
I&O
06/29/24 06/30/24 07/01/24
06:59 06:59 06:59
Intake Total 240 / 240
Balance 240 / 240
Review of Systems
-
History Source: Patient
All other systems: Reviewed and negative
Physical Exam
-
General: Well Developed, No Apparent Distress, Comfortable, Appears Chronically Ill and Other (Thin and frail)
HEENT: Normocephalic, Atraumatic, Moist Mucous Membranes and Anicteric
Respiratory: Clear to Auscultation and Non Labored Respirations
Cardiac: Regular Rhythm and S1/S2; Negative Murmur, Rub or Gallop
GI: Soft, Nontender, Nondistended and Normal Bowel Sounds
Musculoskeletal: No Clubbing, No Cyanosis and No Edema
Skin: Warm and Dry; Negative Rash
Neuro: AO x 3, Nonfocal/Grossly Intact, Slurred Speech (Chronic, unchanged) and Other (Spasticity, chronic)
Psych: Calm
Data Reviewed
-
MRI: Report Reviewed by me and Discussed with Physician (Neurosurgery)
Labs: Labs Reviewed by me and Discussed with Patient
--- NOTE | 2024-06-30 14:20 | W.PN.NEURO.1 ---
Today's Communication / Plan
-
.
Subjective/Objective
Subjective Data
Date of Service: June 30, 2024
Neurology Follow Up Note
Марина endorses 5 out of 10 bioccipital headache that improved to down to 3 out of 5 with recumbency. Ms. Elizabeth continues to have intermittent vertigo with associated nausea worse with turning to the right that she has had over the last several
weeks.
Brain MRI showed no acute infarcts or pachymeningeal enhancement. C-spine MRI�cervical DJD.
The patient has been normotensive and afebrile.
She continues to have neck stiffness.
The patient states that she had no improvement of headache following Reglan, Benadryl and Toradol combination in the emergency room.
CSF(06/28/2024) no OP/CP, WBCs�0, RBC�1, glucose�77, protein�47.
CT head wo contrast-diffuse cortical atrophy.
CTA head/neck- mm cavernous L ICA aneurysm, no dissection or thrombosis.
PMH: left cavernous ICA aneurysm., PLS, cervical DJD
PSH: hysterectomy
SH: single, lives alone, uses a walker, daily ETOH use; retired from marketing
FH: Diabetes
All:minocycline
ROS:Constitutional: Negative. Negative for chills, fever and unexpected weight change.
HENT: Positive for tinnitus, chronic dysphonia, rhinorrhea.
Eyes: Negative. Negative for photophobia, pain and visual disturbance.
Respiratory: Negative for cough, choking and shortness of breath.
Cardiovascular: Negative for chest pain, palpitations and leg swelling.
Gastrointestinal: Positive for intermittent sialorrhea
Endocrine: Negative. Negative for cold intolerance.
Genitourinary: Negative for dysuria, flank pain and urgency.
Musculoskeletal: Positive for neck pain and stiffness.
Skin: Negative for rash.
Allergic/Immunologic: Negative. Negative for immunocompromised state.
Neurological: Positive for headache, left greater than right spasticity, muscle spasms in the legs
Psychiatric/Behavioral: Negative for behavioral problems, confusion and hallucinations.
General: Well developed. In no acute distress.
Cardio: Regular rate and rhythm without murmur. Extremities are without cyanosis or edema.
Neuro:
Mental Status: Alert, oriented to person, place, and date. Normal attention and recall. Good fund of knowledge. Follows complex requests across the midline. Comprehension, naming, and repetition intact. Immediate and delayed recall 3/3.
Cranial Nerves: . Pupils are equally round and reactive to light. EOMs full. Visual luevano full to confrontation. No ptosis. No nystagmus. V1-V3 intact to light touch and pinprick bilaterally, symmetric. Face symmetric. Normal hearing AU.
The palate elevated well. SCMs and traps 5/5. Tongue midline. Moderate spasmodic dysphonia
Motor: Increased motor tone no pronator or arm drift. Strength 5/5 throughout. No clonus.
Reflexes: 3+ throughout the upper extremities and knees. 3/2 in AJs. Plantar responses flexor bilaterally.
Sensory: normal vibration at the toes
Coordination: Reduced fine finger movements left greater than right, no dysmetria or tremor.
Gait: deferred
Assessment and Plan:
I. Occipital headache, fluctuating postural component. No radiographic evidence to support of low pressure headache.
II. PLS, spasmodic dysphonia
III. Cervical DJD
IV. 13/8/9 mm left cavernous ICA aneurysm.
-Please obtain orthostatic vital signs
-Diazepam 1-2 mg every 8 hours as needed
-Neurosurgery follow up
-C/T/LS spine MRI w/wo alisia to look for epidural fluid collections, collapse of the dural sac, engorgement of the epidural venous plexus and meningeal diverticula before considering epidural blood patch
-Meclizine 25 mg every 8 hours as needed
-OP ENT consult
-PT
-Dysphagia evaluation
-The case was discussed at length with Ms. Carney and after obtaining patient's permission
I personally reviewed all radiology and labs along with past medical records pertinent to current medical problems. Total time spent in patient care is 35 minutes.
Thank you for allowing us to participate in the care of this patient. We will continue to follow. Please do not hesitate to contact us with any questions or concerns.
Objective Data
Vital Signs
Temp Pulse Resp BP Pulse Ox
36.9 C 84 18 138/92 95
06/30/24 11:06 06/30/24 11:06 06/30/24 11:06 06/30/24 11:06 06/30/24 12:11
Lab Results
06/30/24 06:36
06/30/24 06:36
Sodium 139 mmol/L (135-145) 06/30/24 06:36
Potassium 3.7 mmol/L (3.5-5.1) 06/30/24 06:36
BUN 18 mg/dl (7-17) H 06/30/24 06:36
Glucose 90 mg/dl (70-99) 06/30/24 06:36
Calcium 9.4 mg/dl (8.4-10.2) 06/30/24 06:36
LDL Cholesterol, Calc 125 mg/dl 06/29/24 06:03
Patient Allergies
minocycline Allergy (Verified 06/28/24 13:08)
Hives
Vital Signs and Labs
-
Vital Signs and Labs:
Vital Signs
Temp Pulse Resp BP Pulse Ox
36.9 C 84 18 138/92 95
06/30/24 11:06 06/30/24 11:06 06/30/24 11:06 06/30/24 11:06 06/30/24 12:11
Lab Results
06/30/24 06:36
06/30/24 06:36
Sodium 139 mmol/L (135-145) 06/30/24 06:36
Potassium 3.7 mmol/L (3.5-5.1) 06/30/24 06:36
BUN 18 mg/dl (7-17) H 06/30/24 06:36
Glucose 90 mg/dl (70-99) 06/30/24 06:36
Calcium 9.4 mg/dl (8.4-10.2) 06/30/24 06:36
LDL Cholesterol, Calc 125 mg/dl 06/29/24 06:03
Medications
-
Medications:
Generic Name Dose Route Start Last Admin
Trade Name Freq PRN Reason Stop Dose Admin
Acetaminophen 650 mg 06/29/24 01:36 06/30/24 10:17
Acetaminophen 325 Mg Tablet PO 07/27/24 01:35 650 mg
Q4HPRN PRN Administration
Mild Pain / Temp > 101
Amlodipine Besylate 5 mg 06/29/24 14:32 06/30/24 08:07
Amlodipine 2.5 Mg Tablet PO 07/27/24 07:59 5 mg
DAILY OSKAR Administration
Baclofen 10 mg 06/29/24 08:00 06/30/24 08:08
Baclofen 10 Mg Tablet PO 07/27/24 07:59 10 mg
DAILY OSKAR Administration
Baclofen 5 mg 06/29/24 22:00 06/29/24 21:51
Baclofen 10 Mg Tablet PO 07/27/24 21:59 5 mg
HS OSKAR Administration
Diazepam 2 mg 06/29/24 01:36 06/29/24 05:44
Diazepam 2 Mg Tablet PO 07/27/24 01:35 2 mg
TIDPRN PRN Administration
SHELDON / Neck Pain
Meclizine HCl 12.5 mg 06/29/24 16:36
Meclizine 12.5 Mg Tablet PO 07/27/24 16:35
Q8HPRN PRN
dizziness
Morphine Sulfate 2 mg 06/29/24 01:36
Morphine 2 Mg/Ml Syringe IV 07/13/24 01:35
Q4HPRN PRN
Severe Pain
Ondansetron HCl 4 mg 06/29/24 16:36 06/29/24 18:25
Ondansetron 4 Mg/2 Ml Vial IV 07/27/24 16:35 4 mg
Q6HPRN PRN Administration
NAUSEA/VOMITING
Sodium Chloride 0 flush 06/29/24 03:00
Sodium Chloride 0.9% (Flush) Syringe IV 07/27/24 02:59
PER PROTOCOL OSKAR
Home Medications
-
Home Medications
amlodipine 2.5 mg tablet 2.5 mg PO DAILY Blood Pressure 06/28/24
baclofen 10 mg tablet 5 mg PO HS spasm/pain 06/28/24
baclofen 10 mg tablet 10 mg PO DAILY spasm/pain 06/28/24
omega 6-jbf-occ-fish oil 100 mg-160 mg-1,000 mg capsule (Fish Oil) 4 cap PO .4 TIMES WEEKLY Supplement 06/28/24
[2024-06-30 15:06] VITALS: BP 151/84
[2024-06-30] MEDS: VALIUM 2 MG PO (15:58)
[2024-06-30] MEDS: ANTIVERT 25 MG PO (16:14)
[2024-06-30 19:40] VITALS: BP 119/76
[2024-06-30] MEDS: LIORESAL 5 MG PO (21:41)
[2024-06-30 23:50] VITALS: BP 114/79
[2024-07-01] MEDS: ANTIVERT 25 MG PO ×3 (00:48→16:33)
[2024-07-01 03:18] VITALS: BP 123/75
[2024-07-01 07:55] VITALS: BP 120/78; BP 122/72; BP 129/87; PULSE 68; PULSE 74; PULSE 87
[2024-07-01] MEDS: LIORESAL 10 MG PO (08:06)
[2024-07-01] MEDS: NORVASC 5 MG PO (08:06)
[2024-07-01] MEDS: TYLENOL 650 MG PO ×2 (09:16→23:10)
[2024-07-01 09:33] LABS: % Basophils 0.7 % (0-2); % Eosinophils 2.3 % (0-6); % Immature Granulocytes 0.2 % (0-0.5); % Lymphocytes 20.8 % (20.5-51.1); % Monocytes 7.5 % (1.7-9.3); % Neutrophils 68.5 % (42.2-75.2); Absolute Eosinophils 0.1 10^3/uL (0-0.7); Absolute Lymphocytes 1.2 10^3/uL (1.2-3.4); Absolute Monocytes 0.4 10^3/uL (0.1-0.6); Absolute Neutrophils 3.8 10^3/uL (1.4-6.5); Hematocrit 49.9 % (37.0-47.0); Hemoglobin 16.3 g/dL (12.0-16.0); Mean Corp Hgb Conc. 32.7 g/dL (33.0-37.0); Mean Corpuscular Hgb 31.5 pg (27.0-31.0); Mean Corpuscular Volume 96.5 fL (81.0-99.0); Nucleated Red Blood Cells % 0 %; Platelet Count 172 10^3/uL (130-400); Red Blood Cell Count 5.17 10^6/uL (4.20-5.40); Red Cell Dist. Width 13.4 % (11.5-14.5); White Blood Cell Count 5.6 10^3/uL (4.8-10.8)
[2024-07-01] MEDS: FIORICET 1 TAB PO (09:34)
[2024-07-01 10:09] LABS: Blood Urea Nitrogen 28 mg/dl (7-17); Calcium 9.2 mg/dl (8.4-10.2); Carbon Dioxide 31 mmol/L (22-30); Chloride 99 mmol/L (98-107); Estimated Creatinine Clearance 66 ml/min; Glucose 79 mg/dl (70-99); Potassium 3.6 mmol/L (3.5-5.1); Sodium 140 mmol/L (135-145); eGFR > 60.00
[2024-07-01 11:14] VITALS: BP 136/96
[2024-07-01 12:49] VITALS: BP 127/86
--- NOTE | 2024-07-01 14:43 | W.PN.HOSP.TC ---
Today's Communication/Plan
-
Blood patch
MRI spine
Assessment / Plan
Assessment / Plan
#Headache and dizziness
#Vertigo
#CVA rule out
-CT brain without contrast unremarkable; CTA with 13 x 8 x 9 mm left ICA aneurysm
-Underwent LP in the ED, no signs of xanthochromia or significant RBC, low suspicion for SAH
-Neurology evaluated, recommended Spinal MRI
-Started on supportive therapy for headache, seems to have resolved, remains dizzy
-MRI brain/C-spine without contrast without any acute findings, no signs of CVA
-Currently on benzodiazepines every 2 hours as needed and meclizine for symptomatic care
Plan
-IR consult for epidural blood patch
-PT/OT/vestibular therapy
-Continue symptomatic care for dizziness and headache
-Neuro recs
#Left ICA aneurysm
-Moderate-sized, may be associated with headache though no other obvious symptoms
-Follows at [facility] neurology for surveillance; does not seem significantly increased in size
-Currently hypertensive, will increase amlodipine for now
-Spoke with neurosurgery, no intervention at this time
-Will need to follow-up at [facility]
#Primary lateral sclerosis
-Complicated by chronic muscle spasticity and speech impairment
-Resumed on home baclofen regimen
-Will need to follow-up with neurologist after discharge
#Hypertension
-Home medications include amlodipine 2.5 mg daily
-Has known left ICA aneurysm
-Amlodipine increased to 5 mg yesterday
-Continue to uptitrate amlodipine for blood pressure goal <130/80
DVT prophylaxis: HSQ
Diet: Regular
CODE STATUS: Full code
Total time spent on today's encounter was 50 minutes which included time spent in counseling the patient/family regarding diagnosis and treatment plan as listed above, goals of care, and symptom management. Case was discussed with nursing staff,
specialists, and care coordinators/case management. All labs and imaging personally reviewed by me. Remainder the time spent in detailed review of previous records, lab data, imaging, and other medical provider documentation.
Anticipated Discharge: 24 - 48 hours
Subjective/Interval History
-
Date of Service: July 01, 2024
No acute events
Objective Data
-
Labs:
Laboratory Results
07/01/24
08:41
WBC 5.6
Hgb 16.3 H
Hct 49.9 H
Plt Count 172
Sodium 140
Potassium 3.6
Chloride 99
Carbon Dioxide 31 H
BUN 28 H
Creatinine 0.6
Glucose 79
Calcium 9.2
Vital Signs:
Vital Signs
Temp Pulse Resp BP Pulse Ox
98.2 F 88 18 127/86 98
07/01/24 12:49 07/01/24 12:49 07/01/24 12:49 07/01/24 12:49 07/01/24 12:49
I&O
06/30/24 07/01/24 07/02/24
06:59 06:59 06:59
Intake Total 240 / 240 240 / 240 240 / 240
Balance 240 / 240 240 / 240 240 / 240
Review of Systems
-
History Source: Patient
All other systems: Reviewed and negative
Data Reviewed
-
MRI: Report Reviewed by me and Discussed with Physician (Neurosurgery)
Labs: Labs Reviewed by me and Discussed with Patient
[2024-07-01] MEDS: HEPARIN 5000 UNITS SC ×2 (15:37→23:11)
[2024-07-01 15:40] VITALS: BP 122/81
[2024-07-01] MEDS: LIORESAL 5 MG PO (21:06)
[2024-07-01] MEDS: VALIUM 2 MG PO (23:11)
[2024-07-01 23:19] VITALS: BP 96/62
--- NOTE | 2024-07-02 02:43 | PTCARENOTE ---
pt would like neuro to talk w/ her [facility]ist - Leni Ortiz [phone] prior to her having blood patch done.
[2024-07-02] MEDS: ANTIVERT PO (02:52)
[2024-07-02] MEDS: ANTIVERT 25 MG PO ×3 (03:48→17:53)
[2024-07-02 07:26] VITALS: BP 124/69
[2024-07-02 08:06] LABS: Hematocrit 47.7 % (37.0-47.0); Mean Corp Hgb Conc. 33.5 g/dL (33.0-37.0); Mean Corpuscular Hgb 32.1 pg (27.0-31.0); Mean Corpuscular Volume 95.6 fL (81.0-99.0); Mean Platelet Volume 9.3 fL (7.4-10.4); Platelet Count 160 10^3/uL (130-400); Red Blood Cell Count 4.99 10^6/uL (4.20-5.40); Red Cell Dist. Width 13.2 % (11.5-14.5)
[2024-07-02 08:42] LABS: ALT (SGPT) 17 U/L (0-35); AST (SGOT) 21 U/L (14-36); Albumin 4.2 g/dl (3.5-5.0); Alkaline Phosphatase 61 U/L (38-126); Blood Urea Nitrogen 33 mg/dl (7-17); Calcium 9.1 mg/dl (8.4-10.2); Carbon Dioxide 32 mmol/L (22-30); Chloride 101 mmol/L (98-107); Estimated Creatinine Clearance 66 ml/min; Glucose 89 mg/dl (70-99); Potassium 3.7 mmol/L (3.5-5.1); Sodium 142 mmol/L (135-145); Total Protein 6.6 g/dl (6.3-8.2); eGFR > 60.00
[2024-07-02] MEDS: LIORESAL 10 MG PO (09:42)
[2024-07-02] MEDS: NORVASC 5 MG PO (09:42)
[2024-07-02] MEDS: HEPARIN 5000 UNITS SC ×2 (09:43→17:55)
[2024-07-02 12:43] VITALS: PULSE 67; O2SAT 94
[2024-07-02 13:38] LABS: Lyme Disease DNA by PCR Not Detected; Lyme Source CSF
--- NOTE | 2024-07-02 14:24 | W.PN.HOSP.TC ---
Today's Communication/Plan
-
f/u neuro recs
pt/ot
Assessment / Plan
Assessment / Plan
#Headache and dizziness
#Vertigo
#CVA rule out
-CT brain without contrast unremarkable; CTA with 13 x 8 x 9 mm left ICA aneurysm
-Underwent LP in the ED, no signs of xanthochromia or significant RBC, low suspicion for SAH
-Neurology evaluated, recommended Spinal MRI: C5/C6 - mild spinal cord compression and moderate right neural foraminal narrowing;
-Started on supportive therapy for headache, seems to have resolved, remains dizzy
-MRI brain/C-spine without contrast without any acute findings, no signs of CVA
-Currently on benzodiazepines every 2 hours as needed and meclizine for symptomatic care
Plan
-IR consult for epidural blood patch
-PT/OT/vestibular therapy
-Continue symptomatic care for dizziness and headache
-Neuro recs
#Left ICA aneurysm
-Moderate-sized, may be associated with headache though no other obvious symptoms
-Follows at [facility] neurology for surveillance; does not seem significantly increased in size
-Currently hypertensive, will increase amlodipine for now
-Spoke with neurosurgery, no intervention at this time
-Will need to follow-up at [facility]
#LARGE THYROID NODULES. Large 3.4 cm partially cystic and partially solid nodule in the left lobe of the thyroid gland and 3.2 cm partially cystic and partially solid nodule in the thyroid isthmus.
-f/u outpt
#Primary lateral sclerosis
-Complicated by chronic muscle spasticity and speech impairment
-Resumed on home baclofen regimen
-Will need to follow-up with neurologist after discharge
#Hypertension
-Home medications include amlodipine 2.5 mg daily
-Has known left ICA aneurysm
-Amlodipine increased to 5 mg yesterday
-Continue to uptitrate amlodipine for blood pressure goal <130/80
DVT prophylaxis: HSQ
Diet: Regular
CODE STATUS: Full code
Anticipated Discharge: 24 - 48 hours
Subjective/Interval History
-
Date of Service: July 02, 2024
Headache resolved, dizziness still persist
Objective Data
-
Labs:
Laboratory Results
07/02/24
07:53
WBC 5.0
Hgb 16.0
Hct 47.7 H
Plt Count 160
Sodium 142
Potassium 3.7
Chloride 101
Carbon Dioxide 32 H
BUN 33 H
Creatinine 0.6
Glucose 89
Calcium 9.1
Total Bilirubin 1.0
AST 21
ALT 17
Alkaline Phosphatase 61
Vital Signs:
Vital Signs
Temp Pulse Resp BP Pulse Ox
98.1 F 68 18 124/69 94
07/02/24 07:26 07/02/24 09:42 07/02/24 07:26 07/02/24 09:42 07/02/24 07:26
I&O
07/01/24 07/02/24 07/03/24
06:59 06:59 06:59
Intake Total 240 / 240 1240 / 1240
Balance 240 / 240 1240 / 1240
Review of Systems
-
History Source: Patient
All other systems: Not reviewed unless documented
Data Reviewed
-
MRI: Report Reviewed by me
Labs: Labs Reviewed by me and Discussed with Patient
--- NOTE | 2024-07-02 14:56 | W.PN.NEURO.1 ---
Today's Communication / Plan
-
.
Subjective/Objective
Subjective Data
Date of Service: July 02, 2024
Neurology Follow Up Note
Ms. Parish states that she did not require. Tylenol since the morning. The patient continues to have intermittent dizziness worse with turning and nausea.
She had 25 mg of meclizine yesterday once.
Fioricet has been effective.
Spinal MRIs showed no evidence of CSF leak and multilevel DJD worst at C5-C6.
PMH: left cavernous ICA aneurysm, PLS, cervical DJD
PSH: hysterectomy
SH: single, lives alone, uses a walker, daily ETOH use; retired from marketing
FH: Diabetes
All:minocycline
ROS:Constitutional: Negative. Negative for chills, fever and unexpected weight change.
HENT: Positive for tinnitus, chronic dysphonia, rhinorrhea.
Eyes: Negative. Negative for photophobia, pain and visual disturbance.
Respiratory: Negative for cough, choking and shortness of breath.
Cardiovascular: Negative for chest pain, palpitations and leg swelling.
Gastrointestinal: Positive for intermittent sialorrhea
Endocrine: Negative. Negative for cold intolerance.
Genitourinary: Negative for dysuria, flank pain and urgency.
Musculoskeletal: Positive for neck pain and stiffness.
Skin: Negative for rash.
Allergic/Immunologic: Negative. Negative for immunocompromised state.
Neurological: Positive for headache, left greater than right spasticity, muscle spasms in the legs
Psychiatric/Behavioral: Positive for labile mood
General: Well developed. In no acute distress.
Cardio: Regular rate and rhythm without murmur. Extremities are without cyanosis or edema.
Neuro:
Mental Status: Alert, oriented to person, place, and date. Labile mood. Good fund of knowledge. Follows complex requests across the midline. Comprehension, naming, and repetition intact. Immediate and delayed recall 3/3.
Cranial Nerves: . Pupils are equally round and reactive to light. EOMs full. Visual luevano full to confrontation. No ptosis. No nystagmus. V1-V3 intact to light touch and pinprick bilaterally, symmetric. Face symmetric. Normal hearing AU.
The palate elevated well. SCMs and traps 5/5. Tongue midline. Moderate spasmodic dysphonia
Motor: Increased motor tone no pronator or arm drift. Strength 5/5 throughout. No clonus.
Coordination: Reduced fine finger movements left greater than right, no dysmetria or tremor.
Gait: deferred
Assessment and Plan:
I. Cervicogenic headache.
II. PLS, spasmodic dysphonia
III. Cervical DJD
IV. 13/8/9 mm left cavernous ICA aneurysm.
-Diazepam 1-2 mg every 8 hours as needed
-Neurosurgery follow up
-Meclizine 25 mg every 8 hours as needed, Fioricet as needed for moderate to severe headache.
-Tylenol 500 mg every 8 hours as needed for neck pain
-OP ENT consult
-PT
-DVT prophylaxis
-Outpatient neurology follow-up.
Please recall neurology services any questions or concerns.
I personally reviewed all radiology and labs along with past medical records pertinent to current medical problems. Total time spent in patient care is 40 minutes.
Thank you for allowing us to participate in the care of this patient. Please do not hesitate to contact us with any questions or concerns.
Objective Data
Vital Signs
Temp Pulse Resp BP Pulse Ox
36.7 C 68 18 124/69 94
07/02/24 07:26 07/02/24 09:42 07/02/24 07:26 07/02/24 09:42 07/02/24 07:26
Lab Results
07/02/24 07:53
07/02/24 07:53
Sodium 142 mmol/L (135-145) 07/02/24 07:53
Potassium 3.7 mmol/L (3.5-5.1) 07/02/24 07:53
BUN 33 mg/dl (7-17) H 07/02/24 07:53
Glucose 89 mg/dl (70-99) 07/02/24 07:53
Calcium 9.1 mg/dl (8.4-10.2) 07/02/24 07:53
LDL Cholesterol, Calc 125 mg/dl 06/29/24 06:03
Patient Allergies
minocycline Allergy (Verified 06/28/24 13:08)
Hives
Vital Signs and Labs
-
Vital Signs and Labs:
Vital Signs
Temp Pulse Resp BP Pulse Ox
36.7 C 68 18 124/69 94
07/02/24 07:26 07/02/24 09:42 07/02/24 07:26 07/02/24 09:42 07/02/24 07:26
Lab Results
07/02/24 07:53
07/02/24 07:53
Sodium 142 mmol/L (135-145) 07/02/24 07:53
Potassium 3.7 mmol/L (3.5-5.1) 07/02/24 07:53
BUN 33 mg/dl (7-17) H 07/02/24 07:53
Glucose 89 mg/dl (70-99) 07/02/24 07:53
Calcium 9.1 mg/dl (8.4-10.2) 07/02/24 07:53
LDL Cholesterol, Calc 125 mg/dl 06/29/24 06:03
Medications
-
Medications:
Generic Name Dose Route Start Last Admin
Trade Name Freq PRN Reason Stop Dose Admin
Acetaminophen 650 mg 06/29/24 01:36 07/01/24 23:10
Acetaminophen 325 Mg Tablet PO 07/27/24 01:35 650 mg
Q4HPRN PRN Administration
Mild Pain / Temp > 101
Acetaminophen/Butalbital/Caffeine 1 tab 06/30/24 16:08
Butalbit/Acetaminophen/Caffeine PO 07/28/24 16:07
Q6HPRN PRN
headache
Amlodipine Besylate 5 mg 06/29/24 14:32 07/02/24 09:42
Amlodipine 2.5 Mg Tablet PO 07/27/24 07:59 5 mg
DAILY OSKAR Administration
Baclofen 10 mg 06/29/24 08:00 07/02/24 09:42
Baclofen 10 Mg Tablet PO 07/27/24 07:59 10 mg
DAILY OSKAR Administration
Baclofen 5 mg 06/29/24 22:00 07/01/24 21:06
Baclofen 10 Mg Tablet PO 07/27/24 21:59 5 mg
HS OSKAR Administration
Diazepam 2 mg 06/29/24 01:36 07/01/24 23:11
Diazepam 2 Mg Tablet PO 07/27/24 01:35 2 mg
TIDPRN PRN Administration
SHELDON / Neck Pain
Heparin Sodium 5,000 units 07/01/24 16:00 07/02/24 09:43
Heparin 5,000 Units/Ml 1 Ml Vial SC 07/29/24 15:59 5,000 units
Q8 OSKAR Administration
Meclizine HCl 25 mg 06/30/24 17:00 07/02/24 09:45
Meclizine 25 Mg Tablet PO 07/28/24 16:59 25 mg
Q8H OSKAR Administration
Morphine Sulfate 2 mg 06/29/24 01:36
Morphine 2 Mg/Ml Syringe IV 07/13/24 01:35
Q4HPRN PRN
Severe Pain
Ondansetron HCl 4 mg 06/29/24 16:36 06/29/24 18:25
Ondansetron 4 Mg/2 Ml Vial IV 07/27/24 16:35 4 mg
Q6HPRN PRN Administration
NAUSEA/VOMITING
Sodium Chloride 0 flush 06/29/24 03:00
Sodium Chloride 0.9% (Flush) Syringe IV 07/27/24 02:59
PER PROTOCOL OSKAR
Home Medications
-
Home Medications
amlodipine 2.5 mg tablet 2.5 mg PO DAILY Blood Pressure 06/28/24
baclofen 10 mg tablet 5 mg PO HS spasm/pain 06/28/24
baclofen 10 mg tablet 10 mg PO DAILY spasm/pain 06/28/24
omega 9-vtw-zew-fish oil 100 mg-160 mg-1,000 mg capsule (Fish Oil) 4 cap PO .4 TIMES WEEKLY Supplement 06/28/24
[2024-07-02 15:31] VITALS: BP 120/83
--- NOTE | 2024-07-02 17:04 | CM ---
CM met with Ama to discuss discharge plans. 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
Ama would like to go home at discharge and go to SNF after she has had a chance to 'get things done at home' before SNF. Pt has [employer] insurance, so cannot obtain SNF authorization after discharge from the hospital.
CM will need to follow up with Ama in AM.
[2024-07-02 19:14] VITALS: BP 115/78; BP 119/78; BP 124/79; PULSE 100; PULSE 85; PULSE 89
[2024-07-02] MEDS: LIORESAL 5 MG PO (22:13)
[2024-07-02 23:51] VITALS: BP 111/71
[2024-07-03] MEDS: HEPARIN SC ×2 (00:35→00:41)
[2024-07-03] MEDS: ANTIVERT 25 MG PO ×2 (00:36→10:05)
[2024-07-03 07:02] VITALS: BP 106/64
[2024-07-03 08:14] LABS: Hematocrit 43.3 % (37.0-47.0); Hemoglobin 14.7 g/dL (12.0-16.0); Mean Corp Hgb Conc. 33.9 g/dL (33.0-37.0); Mean Corpuscular Hgb 32.1 pg (27.0-31.0); Mean Corpuscular Volume 94.5 fL (81.0-99.0); Mean Platelet Volume 9.9 fL (7.4-10.4); Platelet Count 156 10^3/uL (130-400); Red Blood Cell Count 4.58 10^6/uL (4.20-5.40); Red Cell Dist. Width 13.2 % (11.5-14.5); White Blood Cell Count 4.3 10^3/uL (4.8-10.8)
[2024-07-03 08:51] LABS: ALT (SGPT) 15 U/L (0-35); AST (SGOT) 21 U/L (14-36); Albumin 3.8 g/dl (3.5-5.0); Alkaline Phosphatase 55 U/L (38-126); Blood Urea Nitrogen 29 mg/dl (7-17); Calcium 8.9 mg/dl (8.4-10.2); Carbon Dioxide 33 mmol/L (22-30); Chloride 101 mmol/L (98-107); Estimated Creatinine Clearance 66 ml/min; Glucose 86 mg/dl (70-99); Sodium 138 mmol/L (135-145); Total Bilirubin 0.6 mg/dl (0.2-1.3); Total Protein 6.1 g/dl (6.3-8.2); eGFR > 60.00
[2024-07-03] MEDS: LIORESAL 10 MG PO (10:01)
[2024-07-03] MEDS: NORVASC PO (10:02)
[2024-07-03] MEDS: HEPARIN 5000 UNITS SC (10:05)
--- NOTE | 2024-07-03 12:59 | CM ---
Pt is medically clear for d/c today
Pt is being recommended for HH. Discussed w/ pt at bedside, pt is agreeable to [facility] referral completed, liaison made aware
IMM reviewed, pt given copy. Copy placed in chart
Pt stated her friend, Alexandre, will transport home
[facility]

Plan: Home w/ [facility]
--- NOTE | 2024-07-03 13:36 | W.PN.HOSP.TC ---
Addendum entered and electronically signed by David Pereira MD 07/03/24 17:29:
[id number]
Original Note:
Today's Communication/Plan
-
LARGE THYROID NODULES. Large 3.4 cm partially cystic and partially solid nodule in the left lobe of the thyroid gland and 3.2 cm partially cystic and partially solid nodule in the thyroid isthmus.: -f/u outpt
F/u NSG, Neuro outpatient
F/u ENT outpatient
Diazepam 1-2 mg every 8 hours as needed
Meclizine 25 mg every 8 hours as needed, Fioricet as needed for moderate to severe headache.
Tylenol 500 mg every 8 hours as needed for neck pain
Assessment / Plan
Assessment / Plan
#Headache and dizziness - resolved
#Vertigo - resolved
#CVA rule out
#Cervical DJD
-CT brain without contrast unremarkable; CTA with 13 x 8 x 9 mm left ICA aneurysm
-Underwent LP in the ED, no signs of xanthochromia or significant RBC, low suspicion for SAH
-Neurology evaluated, recommended Spinal MRI: C5/C6 - mild spinal cord compression and moderate right neural foraminal narrowing;
-Started on supportive therapy for headache, seems to have resolved, remains dizzy
-MRI brain/C-spine without contrast without any acute findings, no signs of CVA
-Currently on benzodiazepines every 2 hours as needed and meclizine for symptomatic care
Plan
-PT/OT/vestibular therapy
-Continue symptomatic care for dizziness and headache
-Neuro recs
-spoke to neurosurg - no acute intervention needed - can f/u outpt
--Diazepam 1-2 mg every 8 hours as needed
-Neurosurgery/neuro follow up
-Meclizine 25 mg every 8 hours as needed, Fioricet as needed for moderate to severe headache.
-Tylenol 500 mg every 8 hours as needed for neck pain
-OP ENT consult
#Left ICA aneurysm
-Moderate-sized, may be associated with headache though no other obvious symptoms
-Follows at [facility] neurology for surveillance; does not seem significantly increased in size
-Currently hypertensive, will increase amlodipine for now
-Spoke with neurosurgery, no intervention at this time
-Will need to follow-up at [facility] with NSG
#LARGE THYROID NODULES. Large 3.4 cm partially cystic and partially solid nodule in the left lobe of the thyroid gland and 3.2 cm partially cystic and partially solid nodule in the thyroid isthmus.
-f/u outpt
#Primary lateral sclerosis
-Complicated by chronic muscle spasticity and speech impairment
-Resumed on home baclofen regimen
-Will need to follow-up with neurologist after discharge
#Hypertension
-Home medications include amlodipine 2.5 mg daily
-Has known left ICA aneurysm
-Amlodipine increased to 5 mg
DVT prophylaxis: HSQ
Diet: Regular
CODE STATUS: Full code
More than 30 minutes spent in discharge including
Final examination of the patient
Summarizing hospital stay
Instructions for continuing care to all relevant caregivers
Preparation of discharge records, prescriptions, and referral forms
Total time spent (35 in minutes):
Anticipated Discharge: Today
Subjective/Interval History
-
Date of Service: July 03, 2024
Feels better, headache and dizziness have resolved
Objective Data
-
Labs:
Laboratory Results
07/03/24
07:31
WBC 4.3 L
Hgb 14.7
Hct 43.3
Plt Count 156
Sodium 138
Potassium 4.0
Chloride 101
Carbon Dioxide 33 H
BUN 29 H
Creatinine 0.6
Glucose 86
Calcium 8.9
Total Bilirubin 0.6
AST 21
ALT 15
Alkaline Phosphatase 55
Vital Signs:
Vital Signs
Temp Pulse Resp BP Pulse Ox
98.2 F 66 18 106/64 98
07/03/24 07:02 07/03/24 10:02 07/03/24 07:02 07/03/24 10:02 07/03/24 09:58
I&O
07/02/24 07/03/24 07/04/24
06:59 06:59 06:59
Intake Total 1240 / 1240 1100 / 1100
Balance 1240 / 1240 1100 / 1100
Review of Systems
-
History Source: Patient
All other systems: Not reviewed unless documented
Physical Exam
-
General: Well Developed, No Apparent Distress, Comfortable, Appears Chronically Ill and Other (Thin and frail)
HEENT: Normocephalic, Atraumatic, Moist Mucous Membranes and Anicteric
Respiratory: Clear to Auscultation and Non Labored Respirations
Cardiac: Regular Rhythm and S1/S2; Negative Murmur, Rub or Gallop
GI: Soft, Nontender, Nondistended and Normal Bowel Sounds
Musculoskeletal: No Clubbing, No Cyanosis and No Edema
Skin: Warm and Dry; Negative Rash
Neuro: AO x 3, Nonfocal/Grossly Intact, Slurred Speech (Chronic, unchanged) and Other (Spasticity, chronic)
Psych: Calm
Data Reviewed
-
MRI: Report Reviewed by me
Labs: Labs Reviewed by me and Discussed with Patient
--- NOTE | 2024-07-03 13:45 | W.DS.TRANS ---
DC Summary - [employer]
-
Discharge Instructions:
Discharge Diagnosis/Procedures Cervicogenic headache
Vertigo
PLS, spasmodic dysphonia
Cervical DJD
Diet Low Cholesterol,Low Fat
Activity As tolerated
Instructions:
Stand-Alone Forms:
Changes to Home Medications: No
Discharge Medications:
DC Medications w/original date entered in [employer]
baclofen 10 mg tablet 5 mg PO HS spasm/pain 06/28/24
baclofen 10 mg tablet 10 mg PO DAILY spasm/pain 06/28/24
omega 5-abr-vac-fish oil 100 mg-160 mg-1,000 mg capsule (Fish Oil) 4 cap PO .4 TIMES WEEKLY Supplement 06/28/24
acetaminophen 325 mg tablet 650 mg (2 x 325 mg) PO Q8H PRN neck pain #90 tabs 07/03/24
amlodipine 2.5 mg tablet 5 mg (2 x 2.5 mg) PO DAILY #30 tabs 07/03/24
hfnyruezpa-oidwbvcipwxhr-pskevoqq 50 mg-325 mg-40 mg tablet 1 tab PO Q6HPRN PRN moderate to severe headache #20 tabs 07/03/24
diazepam 2 mg tablet 2 mg PO TIDPRN PRN SHELDON / Neck Pain #9 tabs 07/03/24
meclizine 25 mg tablet 25 mg PO Q8H PRN dizziness #20 tabs 07/03/24
Home Medication Changes
amlodipine 2.5 mg tablet 5 mg (2 x 2.5 mg) PO DAILY #30 tabs 07/03/24
ztejszjgvs-aewgufhlsnjyv-hbswoxum 50 mg-325 mg-40 mg tablet 1 tab PO Q6HPRN PRN moderate to severe headache #20 tabs 07/03/24
diazepam 2 mg tablet 2 mg PO TIDPRN PRN SHELDON / Neck Pain #9 tabs 07/03/24
meclizine 25 mg tablet 25 mg PO Q8H PRN dizziness #20 tabs 07/03/24
Pending Results: No
--- NOTE | 2024-07-03 14:28 | VNURNOTE ---
Home Health Liaison met with patient and friend Alexandre at bedside to discuss [facility] nurse/therapy, visits, schedule and homebound status. Patient is agreeable and understands that visits at home will be 2-3 x per week to assess and teach medical
management. Patient has not seen PCP Dr Shane Cho since 2017. Informed patient that [facility] can start services once she is seen by PCP. Patient called PCP office while liaison in room. She is waiting for call back from their office. [facility]
brochure provided with contact information, advised to notify our office when PCP appt made. Patient and friend verbalized understanding. [facility] referral in [facility]. [facility] Intake and CM Tory updated.
[2024-07-03 15:00] VITALS: BP 104/62
== END 2024-07-03 16:25 | disposition home health service (06) | DRG 103 ==
LOC: 4 EAST ACU 23:45
PROVIDERS: Internal Medicine; Nurse Practitioner; ADMITTING PHYSICIAN Hospitalist; ATTENDING PHYSICIAN Internal Medicine; CONSULT PHYSICIAN Psychiatry & Neurology Neurology; EMERGENCY PHYSICIAN Student in an Organized Health Care Education/Training Program; FAMILY PHYSICIAN Family Medicine
DX: G44.86 Cervicogenic headache (principal); G12.23 Primary lateral sclerosis; M47.22 Other spondylosis with radiculopathy, cervical region; E04.2 Nontoxic multinodular goiter; F41.9 Anxiety disorder, unspecified; H93.13 Tinnitus, bilateral; I10 Essential (primary) hypertension; I44.7 Left bundle-branch block, unspecified; I67.1 Cerebral aneurysm, nonruptured; J38.3 Other diseases of vocal cords; Z87.891 Personal history of nicotine dependence; Z88.1 Allergy status to other antibiotic agents; Z79.899 Other long term (current) drug therapy; Z11.52 Encounter for screening for COVID-19
CPT/HCPCS: 62270; 70450; 70496; 70498; 70551; 72141; 72156; 72157; 72158; 80048; 80053; 80061; 82945; 83036; 83735; 84157; 84443; 85025; 85027; 85379; 85652; 86140; 87015; 87070; 87205; 87476; 87483; 87811; 89051; 92526; 92610; 93005; 96361; 96374; 96375; 96376; 97116; 97530; 99285; A9575; Q9967

== ENCOUNTER 2024-11-10 19:34 | Inpatient (IN) | payer OTHER, SELFPAY ==
[2024-11-10] VITALS (7 sets, daily range): BP systolic 138–156; BP diastolic 79–103; BMI 21.9; BMI 21.5
--- NOTE | 2024-11-10 16:18 | ED.GENMED ---
History of Present Illness
General
Chief Complaint: Breathing Problem
Time Seen by Provider: 11/10/24 15:54
History of Present Illness
History of Present Illness:
74-year-old female with history of ALS and hypertension presenting to the emergency department for shortness of breath. Patient reports symptoms started on Monday, 2 days ago. Notes that she has been having increased difficulty catching her
breath. Also notes that her blood pressure has been going up. Notes compliance with her amlodipine. Reports that she was discharged from [facility] on after elective repair of cerebral aneurysm. Denies any issues postsurgery. She was
placed on Plavix. Denies any significant headache, visual changes, weakness or numbness to extremities. Denies fever, cough, lower extremity swelling. Denies issues with breathing in the past. She denies any associated chest pain. Denies
additional acute medical complaint
Past History
Past History
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
Social History
Tobacco: Non-smoker
Alcohol: Daily (2 glasses of wine a day)
Drug: None
Personal: Single
Living: alone
Family History
Family History: Other
Phy Exam
Physical Exam
Physical Exam:
General: Well-appearing, no clinical signs of dehydration, nontoxic and in no acute distress
HEENT: protecting airway
Neck: appears supple
CV: Normal heart rate, regular rhythm
Resp: No accessory muscle use, no increased work of breathing, lungs clear to auscultation bilaterally
Abd: Soft and non-distended, no tenderness to palpation
Extremities: No deformities, no swelling, no erythema
Neuro: alert, no focal neurologic deficit
: deferred
Rectal: deferred
Psych: Normal affect
Skin: Intact
Scores
Heart Failure Risk
Heart Failure Risk Score: Not Applicable
Course
Orders/Labs/Results
Orders:
Orders
11/10/24 16:11
CR Chest - 2 Views Urgent
Comment:
Reason For Exam: SOB
Pft Nif [RESP] Urgent
11/10/24 16:44
Complete Blood Count/With Diff Urgent
Comprehensive Metabolic Panel Urgent
D-Dimer Urgent
NT-proBNP Urgent
Troponin I Urgent
11/10/24 17:58
Ipratropium/Albuterol Sulfate [Duoneb] 3 ml INH R NOW ONE
11/10/24 19:10
NEUROLOGY CONSULT Routine
Consulting Provider: Lynne Correa
Was physician already notified: Yes
Reason for consult: poss pls versus emphysema exacerbation postanesthesia brain aneurysm repair
Dexamethasone Sod Phosphate [Decadron] 4 mg IV NOW STA
Incentive Spirometry [Rx Incentive Spirometry] [RESP] Routine
Frequency: q1h while awake
11/10/24 19:11
Admit/Transfer Patient As Directed
Co-Sign Provider:
Level of Care: Inpatient admission
Assign to:: Telemetry
Physician / Group: daniella love
Diagnosis: Poor inspiratory effort bryce for PLS vs emphysema exacerb post R. anesthes
Reason for Telemetry: Arrhythmia
Date to Stop Telemetry: 11/13/24
Time to Stop Telemetry: 11:00
Reason for Hospitalization: Poor inspiratory effort bryce for PLS vs emphysema exacerb post R. anesthes
Expected length of stay greater than two midnights?: Yes
ELOS- Estimated Length of Stay in days: 3
I certify the patient meets the requirements for IP care: Yes
11/10/24 19:21
PRN Pain Medication Management As Directed
May give lesser potent ordered pain med per pt: Yes
preference::
Protocol:: Medication orders for pain may be administered in a
manner that supports deferring to patient preference
when the pt is:
- Requesting an ordered lesser potent pain medication.
Least to most potent pain medications are defined
as: acetaminophen < NSAID < tramadol < opioids
(morphine, oxycodone, hydromorphone).
- Requesting a lesser dose of the same medication IF
ORDERED.
- Requesting a less intrusive route of administration
if both routes are prescribed by the provider (PO <
IV).
11/10/24 20:29
Acetaminophen [Tylenol] 650 mg PO Q8HPRN PRN
Pft Nif [RESP] DAILY
11/10/24 20:29
Sequential Compression Device [Pneumatic Compression Sleeves] As Directed
Type: Knee high
Incentive Spirometry [Rx Incentive Spirometry] [RESP] Routine
Frequency: q1h while awake
DX Deep Vein Thrombosis Video Routine
11/10/24 22:00
Baclofen [Lioresal] 5 mg PO HS
11/11/24 08:00
Amlodipine [Norvasc] 5 mg PO DAILY
Aspirin 325 mg PO DAILY
Baclofen [Lioresal] 10 mg PO DAILY
Clopidogrel Bisulfate [Plavix] 75 mg PO DAILY
Dexamethasone Sod Phosphate [Decadron] 4 mg IV Q12H
11/13/24 11:00
DC Protocol for Telemetry ONCE
Abnormal Lab Results
11/10/24
16:44
MCH 31.2 H pg
(27.0-31.0)
Absolute Lymphs (auto) 0.8 L 10^3/uL
(1.2-3.4)
Neutrophils % 76.3 H %
(42.2-75.2)
Lymphocytes % 13.1 L %
(20.5-51.1)
BUN 20 H mg/dl
(7-17)
Glucose 117 H mg/dl
(70-99)
11/10/24 16:44
11/10/24 16:44
Vital Signs
Initial and Last Documented VS:
Initial Vital Signs
Temp Pulse Resp BP Pulse Ox
97.8 F 89 21 140/103 96
11/10/24 15:51 11/10/24 15:51 11/10/24 15:51 11/10/24 15:51 11/10/24 15:51
Last Documented Vital Signs
Temp Pulse Resp BP Pulse Ox
98.3 F 97 18 143/92 96
11/10/24 20:43 11/10/24 20:43 11/10/24 20:43 11/10/24 20:43 11/10/24 21:30
MDM/Problems Addressed
MDM/Problems Addressed:
74-year-old female with history of hypertension and ALS presenting to the emergency department for shortness of breath. Vital signs on arrival significant for mild hypertension.
On exam patient is resting comfortably, no acute distress or discomfort. No significant increased work of breathing. She is afebrile, nontoxic. Relatively benign pulmonary exam. No focal abnormal lung sounds. Hospital-acquired pneumonia is a
consideration given recent hospitalization, however again afebrile without infectious symptoms. Lower suspicion. CHF is a consideration, however no signs of volume overload on exam. PE is a consideration given recent hospitalization and surgery,
will send D-dimer. EKG obtained, nonischemic. Patient without chest pain, lower specimen for ACS. Given patient's ALS, respiratory compromise is a consideration, however breathing appears controlled. Will discuss with respiratory regarding NIF
test.
17:20 -D-dimer within normal limits. Chest x-ray shows emphysema. Labs otherwise unremarkable. Sniff test is low at 20, likely contributing to patient's symptoms. Will trial DuoNebs in the setting of emphysema and plan for admission for
respiratory monitoring
*Critical Care Note
Total Time (30-74mins, 75-104mins- exclusive of procedures): Not Applicable
ED Attending Note
-
Portions of this chart may have been created with voice recognition software.� Occasional wrong word or��sound alike� substitutions may have occurred due to the inherent limitations of voice recognition software.
Discharge Plan
Departure
Patient Disposition: Admit
Date of Disposition: 11/10/24
Time of Disposition: 18:02
Presentation/result/management discussed w/ accepting MD/DO: Hospitalist
Patient with high blood pressure during this ER visit?: No
Condition: Good
Discharge Problem:
Shortness of breath, Amyotrophic lateral sclerosis/progressive muscular atrophy
Interventions
Interventions:
*Risk Screen - Suicide Last Done: 11/10/24 21:27
*General Assessment Last Done: 11/10/24 15:51
*Neglect/Abuse Screening Last Done: 11/10/24 15:51
*ED- Fall Risk Assessment Last Done: 11/10/24 15:51
*ED COVID-19 Vaccine History Last Done: 11/10/24 15:51
*Nursing Disposition Last Done: 11/10/24 20:26
ED- Cardiac Assessment Last Done: 11/10/24 16:04
ED- Pulmonary Assessment Last Done: 11/10/24 15:51
Discharge Date and Time
Discharge Date/Time: 11/10/24 20:29
[2024-11-10 16:50] LABS: % Basophils 0.8 % (0-2); % Immature Granulocytes 0.3 % (0-0.5); % Lymphocytes 13.1 % (20.5-51.1); % Monocytes 7.5 % (1.7-9.3); % Neutrophils 76.3 % (42.2-75.2); Absolute Basophils 0.1 10^3/uL (0-0.2); Absolute Eosinophils 0.1 10^3/uL (0-0.7); Absolute Lymphocytes 0.8 10^3/uL (1.2-3.4); Absolute Monocytes 0.5 10^3/uL (0.1-0.6); Absolute Neutrophils 4.9 10^3/uL (1.4-6.5); Hematocrit 39.1 % (37.0-47.0); Hemoglobin 13.6 g/dL (12.0-16.0); Mean Corp Hgb Conc. 34.8 g/dL (33.0-37.0); Mean Corpuscular Hgb 31.2 pg (27.0-31.0); Mean Corpuscular Volume 89.7 fL (81.0-99.0); Mean Platelet Volume 9.3 fL (7.4-10.4); Nucleated Red Blood Cells % 0 %; Platelet Count 195 10^3/uL (130-400); Red Blood Cell Count 4.36 10^6/uL (4.20-5.40); Red Cell Dist. Width 12.7 % (11.5-14.5); White Blood Cell Count 6.4 10^3/uL (4.8-10.8)
[2024-11-10 17:03] LABS: D-Dimer 0.48 ug/mlFEU (0.00-0.50)
[2024-11-10 17:06] LABS: ALT (SGPT) 16 U/L (0-35); AST (SGOT) 21 U/L (14-36); Alkaline Phosphatase 85 U/L (38-126); Blood Urea Nitrogen 20 mg/dl (7-17); Calcium 9.4 mg/dl (8.4-10.2); Carbon Dioxide 26 mmol/L (22-30); Chloride 104 mmol/L (98-107); Estimated Creatinine Clearance 66 ml/min; Glucose 117 mg/dl (70-99); Sodium 141 mmol/L (135-145); Total Bilirubin 0.7 mg/dl (0.2-1.3); Total Protein 7.7 g/dl (6.3-8.2); eGFR > 60.00
[2024-11-10 17:17] LABS: NT-proBNP 118 pg/ml; Troponin I < 0.012 ng/ml
--- NOTE | 2024-11-10 18:28 | HPS.HSE ---
Family Physician
-
Family Physician: Shane Cho
Chief Complaint
-
Difficulty taking deep breath
History of Present Illness
74-year-old female with history of ALS, primary lateral sclerosis with ataxia, HTN. Patient is status post cerebral aneurysm repair at [facility] on 11/05/2024 she tolerated the procedure well and was discharged
11/07/2024. She complains of having difficulty taking a breath 3 days after surgery. She reports she has to focus to take a deep breath in. She also is noting that her blood pressure has been going up despite taking her amlodipine. In the ER she
had a NIF of less than 20. She has history of primary lateral sclerosis diagnosed 12 to 13 years ago after a right ankle tendon repair needed. She has chronic dysphagia but chops up her food and is able to drink thin liquids. She speaks with a
Staccato speech. She has expiratory wheezes on exam. The patient denies headache, sore throat, chest pain, palpitations, cough, abdominal pain, nausea, vomiting, diarrhea, urinary symptoms. She has resolving bruising to her right wrist at the
insertion site for her left internal carotid aneurysm repair. She was made aware that brain aneurysms are hereditary she does not have any children but does have nieces and nephews and will pass along the information
Medical History
Past Medical History
Past Medical History: Reports Other
Additional Past Medical History:
Primary Lateral Sclerosis Dx 12-13 years ago
Moderate emphysema
Former smoker 25-year 1 to 2 pack a day quit age 59
Former alcoholic drink 2 glasses of wine daily until June 2024
Left internal carotid brain aneurysm status post repair via right wrist 11/05/2024 [facility]
Hypertension
LBBB
Past Surgical History: Reports Other
Additional Past Surgical History:
Left internal carotid brain aneurysm status post repair via right wrist 11/05/2024 [facility]
Heart-shaped uterus repair
Social History
Tobacco: Former Smoker (Quit smoking 20 years ago. Approx 20 pack years total use.)
Alcohol: Daily (1 1/2 glasses of wine daily.)
Drug: None
Personal: Single
Living: Alone
Employment: Retired
Family History
Family History: Other (Mother / Father / Brother: CVA No known family h/o aneurysm. Patient has no children)
Allergies / Home Medications
Allergies reflects when Allergies were last updated in [facility].
Home Medications with original date entered in [facility]
Allergy/Medication List:
Allergies
Allergy/AdvReac Type Severity Reaction Status Date / Time
minocycline Allergy Hives Verified 06/28/24 13:08
Home Medications
baclofen 10 mg tablet 5 mg PO HS spasm/pain 06/28/24
baclofen 10 mg tablet 10 mg PO DAILY spasm/pain 06/28/24
acetaminophen 325 mg tablet 650 mg PO Q8HPRN PRN mild pain 11/10/24
amlodipine 5 mg tablet (Norvasc) 5 mg PO DAILY 11/10/24
aspirin 325 mg tablet 325 mg PO DAILY 11/10/24
clopidogrel 75 mg tablet (Plavix) 75 mg PO DAILY 11/10/24
omega-3 fatty acids-vitamin E 1,000 mg capsule 4 cap PO Q48H 11/10/24
Review of Systems
-
History Source: Patient
A 12 point ROS was completed and negative except as noted: Yes
Constitutional: Reports Other (chronic staccato speech); Denies Fever, Fatigue or Chills
EENT: Denies Sore Throat or Runny Nose
Respiratory: Reports Trouble Breathing (Difficulty taking deep breath, expiratory wheezes); Denies Cough
Cardiac: Denies Chest Pain, Diaphoresis, Palpitations or Syncope
Abdomen/GI: Denies Abdominal Pain, Nausea, Vomiting, Diarrhea, Constipated, Bloody Stools or Black Stools
: Denies Dysuria, Frequency, Flank Pain, Incontinence or Difficulty Voiding
Musculoskeletal: Denies Joint Pain, Joint Swelling, Muscle Stiffness or Edema
Skin: Reports Other (Healing ecchymosis right wrist at insertion of catheter for aneurysm repair and brain); Denies Itching or Rash
Neurological: Denies Dizzy or Headache
Endocrine: Reports No Symptoms
Hematologic/Lymphatic: Reports No Symptoms
Psych: Reports Calm
Physical Exam
Vital Signs
Vital Signs
Temp Pulse Resp BP Pulse Ox
97.8 F 80 15 156/86 94
11/10/24 15:51 11/10/24 17:00 11/10/24 17:00 11/10/24 16:03 11/10/24 17:00
Physical Exam
General: Conversant; No Pain, Fever or Chills
HEENT: NormoCephalic, Anicteric, Moist mucous membranes, PERRLA, [place] Conjunctivae, No Ptosis and Other (chronic staccato speech)
Respiratory: Wheezes (Expiratory) and Other (Poor inspiratory effort); No Rales
Cardiac: S1/S2 and Regular Rhythm; No Murmur, Rub, Gallop or Peripheral Edema
Breast: Deferred by me
GI: Soft, Non Tender, Non Distended, Normal Bowel Sounds and No Hepatosplenomegaly
Rectal: Deferred by Provider
Genito-urinary: Deferred by me
Musculoskeletal: No Clubbing, No Cyanosis and No Edema
Skin: Warm, Dry and Other (Healing ecchymosis right wrist at insertion of catheter for aneurysm repair and brain); No Rash
Neuro: AO x 3, No Motor Deficits, Nonfocal/grossly intact, Cranial Nerves Intact, No Sensory Deficits and Other (chronic staccato speech); No Facial Droop or Tremors
Psych: Calm
Laboratory Results
-
11/10/24 16:44
11/10/24 16:44
Laboratory Results
Total Bilirubin 0.7 mg/dl (0.2-1.3) 11/10/24 16:44
AST 21 U/L (14-36) 11/10/24 16:44
ALT 16 U/L (0-35) 11/10/24 16:44
Alkaline Phosphatase 85 U/L (38-126) 11/10/24 16:44
Troponin I < 0.012 ng/ml 11/10/24 16:44
Impression/Plan
-
Impression/plan:
Inpatient telemetry
#Increased shortness of breath concern for Primary lateral sclerosis exacerbation versus Emphysema exacerbation
Patient is status post anesthesia 11/05/2024 -5 days ago
NIf test low at 20
-Will give nebulizer
- Consult neurology Dr. Correa was discussed to repeat NIFtest to ER provider
- IV Decadron 2 mg every 12 hours
- DuoNebs scheduled and as needed
- Incentive spirometry
- Repeat NIF test in a.m.
- Consult PT
CXR: Moderate bilateral upper lobe emphysema
Moderate bilateral lung hyperinflation
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
-Continue baclofen 10 mg daily and baclofen 5 mg at bedtime
- Consult PT
#HTN�benign
BP 156/86
-Continue Norvasc 5 mg daily
#Cerebral aneurysm-left internal carotid
-status post cerebral aneurysm repair via right wrist at [facility] on 11/05 Dr. Adriano Neff neurosurgery
- Right wrist distal neurovascular status intact, healing ecchymosis
- Patient is on Plavix 75 mg daily and aspirin 325 mg daily x 6 months post aneurysm repair for clot prevention per neurosurgery
DVT prophylaxis
SCDs
DNR patient states her friends Junie and Alexandre are her emergency contacts as she is not and has no children
[2024-11-10] MEDS: DECADRON 4 MG IV (19:30)
[2024-11-10] MEDS: DUONEB 3 ML INH (19:30)
--- NOTE | 2024-11-10 20:07 | W.PN.UPDATE ---
Update Note
Progress Note Update
This note serves as an addendum to the H&P by manager personnel selection CHEMA Karo LYE
HPI:
74F HX chronic staccato speech, primary lateral sclerosis with ataxia, HTN, s/p cerebral aneurysm repair at [facility] on Monday11/05/2024 and discharged 11/07/2024 seen at ER:
- difficulty taking a breath 3 days after surgery
- has to focus to take a deep breath in.
- NIF @ ER < 20.
HX primary lateral sclerosis diagnosed 12 to 13 years ago after a right ankle tendon repair needed. associated with chronic dysphagia but chops up her food and is able to drink thin liquids HX chronic
ROS
- expiratory wheezes on exam.
- denies headache, sore throat, chest pain, palpitations, cough, abdominal pain, nausea, vomiting, diarrhea, urinary symptoms.
- She has resolving bruising to her right wrist at the insertion site for her left internal carotid aneurysm repair.
- She was made aware that brain aneurysms are hereditary she does not have any children but does have nieces and nephews and will pass along the information
Reviewed VS: AFVSS POx mid 90s on on RA
PE
Gen: NAD, not toxic
HEENT: chronic staccato speech
Neck: supple
Lungs: decreased AE, exp wheeze
Cor: RRR S1 S2
Abdomen: Soft, Non Tender, Non Distended,
EGG TRAYER: AO x 3, No Motor Deficits, Nonfocal/grossly intac
chronic staccato speech, No Facial Droop or Tremors
MS: no edema
Psych: AAO3
Data
CXR:
Moderate bilateral upper lobe emphysema
Moderate bilateral lung hyperinflation
ASSESSMENT & PLAN
SoB and Low NIF ( < 20 ) due to likely weak respiratory muscle strength
Low NIF - clinical significant for weak respiratory muscle strength especially diaphragm
Expiratory wheeze
HX COPD/emphysema of former smoker
Concern for decompensated primary lateral sclerosis vs. status post anesthesia 11/05/2024 vs. Emphysema/COPD flare
- Nebs
- IV Decadron 2 mg every 12 hours
- DuoNebs scheduled and as needed
- Incentive spirometry
- Dynamic NIF observation
- Neurology Dr. Correa consulted and was discussed to repeat NIF test to ER provider
Primary lateral sclerosis ( PLS) with chronic ataxia and dysphagia and chronic staccato speech
Chr ambulatory dysfunction use walker
- on DRESSING MACHINE OPERATOR baclofen
- PT
Benign HTN
- on DRESSING MACHINE OPERATOR Norvasc 5 mg daily
POD 4/5 Cerebral aneurysm-left internal carotid on 11/05/24
- status post cerebral aneurysm repair via right wrist at [facility] on 11/05 Dr. Adriano Neff neurosurgery
- Right wrist distal neurovascular status intact, healing ecchymosis
- on Plavix 75 mg daily and aspirin 325 mg daily x 6 months post aneurysm repair for clot prevention per neurosurgery
DVT Px: DRESSING MACHINE OPERATOR DAPL and SCD
Code: DNR per patient: Friends Kristy and Alexandre are her emergency contacts as she is not and has no children
IP TLM
[2024-11-10] MEDS: LIORESAL 5 MG PO (21:36)
--- NOTE | 2024-11-10 22:07 | PTCARENOTE ---
pt arrived from ED via wheelchair. pt was a stand and pivot from wheelchair to bed with RW. pt AAOx3, VSS. bed alarm and fall risk band placed for safety. call mendez within reach, will continue to monitor closely.
[2024-11-11] VITALS (7 sets, daily range): BP systolic 104–153; BP diastolic 62–89; PULSE 100; O2SAT 96; BMI 21.5
[2024-11-11] MEDS: DUONEB 3 ML INH ×4 (07:17→19:18)
[2024-11-11] MEDS: PLAVIX 75 MG PO (08:05)
[2024-11-11] MEDS: ASPIRIN 325 MG PO (08:05)
[2024-11-11] MEDS: DECADRON 2 MG IV (08:05)
[2024-11-11] MEDS: NORVASC 5 MG PO (08:05)
[2024-11-11] MEDS: LIORESAL 10 MG PO (08:06)
--- NOTE | 2024-11-11 14:38 | W.PN.HOSP.TC ---
Today's Communication/Plan
-
Continue short course steroid and bronchodilators
Trend NIF
Monitor on room air
Assessment / Plan
Assessment / Plan
#Dyspnea
#COPD
-Question worsening ALS/musculoskeletal disease versus COPD exacerbation
-Upon arrival had low NIF at 20; was started on steroid and nebulizers
-Has not required any supplemental oxygen, has remained on room air without hypoxemia
-Will continue steroid for short course, continue RTC bronchodilators as well
-Trend NIF, encourage incentive spirometer
-SpO2 goal 88-94%
#Amyotrophic lateral sclerosis
#Primary lateral sclerosis
#Chronic ataxia and dysphagia
-Home regimen includes baclofen 10 mg daily and 5 mg at nighttime
-Currently not on Riluzole, unclear if she had tried in the past
-Chronic deficits appears stable
#Status post left ICA aneurysm repair
-[facility]
-Home regimen includes DAPT with Plavix and full dose aspirin for 6-month
-No signs of bleeding on current DAPT
#Primary hypertension
-Home regimen includes amlodipine 5 mg day
-No known history of hypertensive systemic disease
-Blood pressure here well-controlled
DVT prophylaxis: SCDs
Diet: Regular
CODE STATUS: DNR
Anticipated Discharge: 24 - 48 hours
Subjective/Interval History
-
Date of Service: November 11, 2024
Seen and examined at the bedside. No acute events reported overnight. AFVSS on room air
NIF this morning improved from 20 -> 30. States her breathing is much improved
Denies any new complaints this morning
Objective Data
-
Vital Signs:
Vital Signs
Temp Pulse Resp BP Pulse Ox
98.3 F 78 18 130/80 96
11/11/24 11:16 11/11/24 11:39 11/11/24 11:39 11/11/24 11:16 11/11/24 11:18
I&O
11/10/24 11/11/24 11/12/24
06:59 06:59 06:59
Intake Total 240 / 240
Balance 240 / 240
Review of Systems
-
History Source: Patient
All other systems: Reviewed and negative
Physical Exam
-
General: Well Developed, No Apparent Distress, Comfortable and Appears Chronically Ill
HEENT: Normocephalic, Atraumatic, Moist Mucous Membranes and Anicteric
Respiratory: Clear to Auscultation and Non Labored Respirations; Negative Accessory Resp Muscle Use
Cardiac: Regular Rhythm and S1/S2; Negative Murmur, Rub or Gallop
GI: Soft, Nontender, Nondistended and Normal Bowel Sounds
Musculoskeletal: No Clubbing, No Cyanosis and No Edema
Skin: Warm, Dry and Normal Turgor; Negative Rash
Neuro: AO x 3 and Nonfocal/Grossly Intact; Negative Tremors
Psych: Calm
Data Reviewed
-
Labs: Labs Reviewed by me and Discussed with Patient
--- NOTE | 2024-11-11 17:45 | CM ---
Alert awake oriented patient who lives alone in a 2 story home with 2 steps to enter and 12 steps to bed/bathroom. She is independent in activates of daily living.She does not drive .She used a walker,cane and transport wc.
Had [facility] and [facility] in past . No SNF hx
Pharmacy [facility]
PCP Dr Shane Cho
PLAN Home with [facility]
[2024-11-11 20:00] LABS: Glucose - Point of Care 119 mg/dl (70-99)
--- NOTE | 2024-11-11 20:15 | PTCARENOTE ---
pt c/o feelings of anxiety shortly after receiving scheduled duoneb tx. pt with HR elevated to 130s, hand tremors, and unable to sit still. assisted pt to sit on edge of the bed, deep breathing exercises, and IS use. VS- 97.7 temp, HR 130s, BP
116/88, RR 28, pulse ox 96% RA. HEAVY EQUIPMENT SALES ASSOCIATE made aware- no new orders at this time. pt refused 2000 dose of IV decadron. will continue to monitor.
[2024-11-11] MEDS: LIORESAL 5 MG PO (21:13)
[2024-11-11] MEDS: DECADRON IV (21:13)
[2024-11-11] MEDS: MELATONIN 5 MG PO (21:14)
[2024-11-12 00:04] VITALS: BP 105/53
[2024-11-12] MEDS: TYLENOL 650 MG PO ×2 (01:06→09:11)
[2024-11-12 01:11] VITALS: BP 155/97
[2024-11-12 02:55] VITALS: BP 112/75
[2024-11-12] MEDS: DUONEB INH ×2 (07:02→10:54)
[2024-11-12 07:44] VITALS: BP 124/86
[2024-11-12] MEDS: PLAVIX 75 MG PO (08:59)
[2024-11-12] MEDS: ASPIRIN 325 MG PO (08:59)
[2024-11-12] MEDS: NORVASC 5 MG PO (08:59)
[2024-11-12] MEDS: DECADRON 2 MG IV (09:00)
[2024-11-12] MEDS: LIORESAL 10 MG PO (09:00)
--- NOTE | 2024-11-12 09:29 | RESPNOTE ---
Respiratory: Patient NIF yesterday and today were both -30 cmH2O with good patient effort after encouragement.
--- NOTE | 2024-11-12 11:19 | CM ---
Patient for d/c home today.
Patient has transportation.
Patient current with [facility].
TC to [facility] care verified they are following.
IMM completed.
Pln: home with [facility]
fax# [phone]
[2024-11-12 11:26] VITALS: BP 123/76
--- NOTE | 2024-11-12 11:28 | W.PN.HOSP.TC ---
Today's Communication/Plan
-
Transition to oral steroid
Symbicort and albuterol MDI at discharge
Follow-up with inventory coordinator for PFTs and 6 MWT
Assessment / Plan
Assessment / Plan
#Dyspnea
#COPD exacerbation
-Question worsening ALS/musculoskeletal disease versus COPD exacerbation
-Upon arrival had low NIF at -20; was started on steroid and nebulizers; improved to -30 x 2
-Has not required any supplemental oxygen, has remained on room air without hypoxemia
-Will continue steroid for short course, continue RTC bronchodilators as well
-Trend NIF, encourage incentive spirometer
-SpO2 goal 88-94%
#Amyotrophic lateral sclerosis
#Primary lateral sclerosis
#Chronic ataxia and dysphagia
-Home regimen includes baclofen 10 mg daily and 5 mg at nighttime
-Currently not on Riluzole, unclear if she had tried in the past
-Chronic deficits appears stable
#Status post left ICA aneurysm repair
-Status post repair via right radial access on 11/05/[address] Tawanda Simpson
-Home regimen includes DAPT with Plavix and full dose aspirin for 6-month
-No signs of bleeding on current DAPT
#Primary hypertension
-Home regimen includes amlodipine 5 mg day
-No known history of hypertensive systemic disease
-Blood pressure here well-controlled
DVT prophylaxis: SCDs
Diet: Regular
CODE STATUS: DNR
Anticipated Discharge: Today
Subjective/Interval History
-
Date of Service: November 12, 2024
Seen and examined at bedside. No acute events reported overnight. AFVSS on room air
NIF remains at -30 cm, stable from yesterday.
Patient states she feels well, denies any shortness of breath today
Objective Data
-
Vital Signs:
Vital Signs
Temp Pulse Resp BP Pulse Ox
98.2 F 84 16 123/76 96
11/12/24 11:26 11/12/24 11:26 11/12/24 11:26 11/12/24 11:26 11/12/24 11:26
I&O
11/11/24 11/12/24 11/13/24
06:59 06:59 06:59
Intake Total 240 / 240 960 / 960
Balance 240 / 240 960 / 960
Review of Systems
-
History Source: Patient
All other systems: Reviewed and negative
Physical Exam
-
General: Well Developed, No Apparent Distress, Comfortable and Appears Chronically Ill
HEENT: Normocephalic, Atraumatic, Moist Mucous Membranes and Anicteric
Respiratory: Clear to Auscultation and Non Labored Respirations; Negative Wheezes, Rales, Rhonchi or Accessory Resp Muscle Use
Cardiac: Regular Rhythm and S1/S2; Negative Murmur, Rub or Gallop
GI: Soft, Nontender, Nondistended and Normal Bowel Sounds
Musculoskeletal: No Clubbing, No Cyanosis and No Edema
Skin: Warm and Dry; Negative Rash
Neuro: AO x 3, Nonfocal/Grossly Intact, Central Nerve's Intact and Other (Chronic staccato speech and ataxia); Negative Tremors
Psych: Calm
--- NOTE | 2024-11-12 13:21 | PTCARENOTE ---
Patient verbalizes understanding of all discharge instructions. IV removed/tele removed. Patient left via wheelchair with staff escort. Family present to transport.
--- NOTE | 2024-11-12 13:55 | W.DCSUMMARY ---
Discharge Summary
Discharge Data
Date of Admission: 11/10/24
Date of Discharge: 11/12/24
Total time spent discharging patient (in min): 31
-
Pending Results: No
Hospital Course
Discharging Physician :� Sherif Reis DO
Disposition :���� Home
Principal Discharge diagnosis :�
Dyspnea
Mild COPD exacerbation
Chronic Discharge diagnosis :�
ALS/PLS
COPD
Hypertension
Left bundle branch block
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
Hospital Course :�
74-year-old female that presented to the hospital with shortness of breath, most noticeable when sitting up. Chest x-ray showed moderate bilateral upper lobe emphysema and bilateral lung hyperinflation, did not show any signs of pulmonary
infiltrates, effusions, pneumothorax, pulmonary edema. BNP was low. 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 Was started on steroids and bronchodilators.
NIF improved to -30 cm x 2. Shortness of breath resolved quickly on a steroid and bronchodilators. Was stable on room air throughout hospitalization. After monitoring on room air she was discharged home with short course of oral prednisone,
Symbicort maintenance inhaler, albuterol MDI as needed. Recommend she follows up with dental coordinator for PFTs.
Consultants : N/A
Important imaging findings :�
Chest x-ray (11/10/2024)
FINDINGS: There is mild left to right mediastinal shift. There is mild tortuosity of the thoracic aorta which appears unchanged. There is no evidence for acute pulmonary edema. There is moderate bilateral lung hyperinflation secondary to moderate
bilateral upper lobe centrilobular emphysema. There is no focal airspace opacity suspicious for pneumonia. There is no radiographic evidence for pleural effusion or pneumothorax. There is mild multilevel discogenic degenerative disease throughout
the thoracic spine. There is a minimal right convex curvature of the midthoracic spine. 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 There is no radiographic evidence for pneumoperitoneum or abnormal bowel dilatation in
the upper abdomen.
Procedure findings :� N/A
Follow-up :
PCP 1 to 2 weeks after discharge (referral provided)
Referral for dental coordinator for PFTs and 3 to 4 weeks after discharge
Discharge Plan
-
Patient Disposition: Home (Routine Discharge)
Discharge Diagnosis/Procedures: Dyspnea
Mild COPD exacerbation
Condition: Fair
Diet: No restrictions
Activity: As tolerated
Driving Restrictions: Not until seen by your Dr
Bathing Restrictions: None
Blood Work: None
Others Tests: Pulmonary function tests and 6-minute walk test with dental coordinator
Activity Restrictions/Additional Instructions:
After discharge from the hospital schedule follow-up appointment with your family doctor. Should be seen in the office within 1 to 2 weeks of discharge from the hospital. Referral provided if new family doctor is needed
Referral provided for dental coordinator, if needed. Contact their office to schedule follow-up appointment for PFTs and 6-minute walk test.
Follow-up with your other medical providers as directed prior to hospitalization
Instructions: COPD exacerbation
Referrals:
Tiago Cox MD, Resident [Family Practice Resident Year2] - in one to two weeks (If needed)
Shane Cho MD [Family Provider] -
Alphonso Godinez MD [Active] - in two to three weeks
Additional Discharge Medication Instructions: Continue prednisone 40 mg for 3 days after discharge from the hospital (last day 11/15)
Start Symbicort 1 puff daily for COPD maintenance inhaler
Start albuterol sulfate 2 puffs every 6 hours as needed for shortness of breath or wheezing
Start melatonin 5 mg nightly for sleep
Prescriptions:
New
melatonin 5 mg Tablet
5 mg PO HS 30 Days Qty: 30 0RF
prednisone 20 mg tablet
40 mg PO DAILY 3 Days Qty: 6 0RF
budesonide-formoterol [Symbicort] 80-4.5 mcg/actuation HFA aerosol inhaler
1 puff inhalation ONCE 30 Days Qty: 10.2 0RF
albuterol sulfate 90 mcg/actuation HFA aerosol inhaler
2 puff inhalation Q6H PRN (Reason: shortness of breath or wheezing) Qty: 6.7 0RF
budesonide-formoterol [Symbicort] 80-4.5 mcg/actuation HFA aerosol inhaler
1 inh inhalation DAILY 30 Days Qty: 10.2 0RF
Continued
baclofen 10 mg tablet
10 mg PO DAILY
baclofen 10 mg tablet
5 mg PO HS
aspirin 325 mg Tablet
325 mg PO DAILY
clopidogrel [Plavix] 75 mg Tablet
75 mg PO DAILY
amlodipine [Norvasc] 5 mg Tablet
5 mg PO DAILY
omega-3 fatty acids-vitamin E 1,000 mg Capsule
4 cap PO Q48H
acetaminophen 325 mg tablet
650 mg PO Q8HPRN PRN (Reason: mild pain)
Discharge Orders:
Discharge Patient (As Directed); Ordered 11/12/24
Ordered By: Sherif Reis
Discharge Date and Time
Discharge Date/Time: 11/12/24 13:07
Print Language: WOLOF
== END 2024-11-12 13:07 | disposition home health service (06) | DRG 57 ==
LOC: 4 EAST ACU 19:34
PROVIDERS: ADMITTING PHYSICIAN Internal Medicine; ATTENDING PHYSICIAN Internal Medicine; EMERGENCY PHYSICIAN Student in an Organized Health Care Education/Training Program; FAMILY PHYSICIAN Internal Medicine Cardiovascular Disease
DX: G12.21 Amyotrophic lateral sclerosis (principal); J44.1 Chronic obstructive pulmonary disease with (acute) exacerbation; G12.23 Primary lateral sclerosis; J43.2 Centrilobular emphysema; I10 Essential (primary) hypertension; I44.7 Left bundle-branch block, unspecified; Z87.891 Personal history of nicotine dependence; F10.21 Alcohol dependence, in remission; Z82.3 Family history of stroke; Z79.82 Long term (current) use of aspirin; Z79.02 Long term (current) use of antithrombotics/antiplatelets; Z66 Do not resuscitate; F41.9 Anxiety disorder, unspecified; M19.011 Primary osteoarthritis, right shoulder; M19.012 Primary osteoarthritis, left shoulder; R13.10 Dysphagia, unspecified; R93.89 Abnormal findings on diagnostic imaging of other specified body structures; Z79.51 Long term (current) use of inhaled steroids; Z79.899 Other long term (current) drug therapy
CPT/HCPCS: 71046; 80053; 82962; 83880; 84484; 85025; 85379; 94640; 97112; 97162; 99285